=== PATIENT | female | born 1950 | race Caucasian/White ===

== ENCOUNTER 2017-03-23 12:51 | Outpatient (CLI) | payer MEDICARE, OTHER | END 2017-03-23 12:52 | disposition home or self-care (01) | LOC: BICRAD 12:51 | PROVIDERS: ATTEND Internal Medicine | DX: Z01.811 Encounter for preprocedural respiratory examination (principal); I70.90 Unspecified atherosclerosis; J81.0 Acute pulmonary edema | CPT/HCPCS: 71020 ==

== ENCOUNTER 2019-04-25 13:53 | Outpatient (CLI) | payer MEDICARE, OTHER ==
--- NOTE | 2019-04-25 15:08 | RAD ---
TWO VIEWS OF THE CHEST: COMPARISON: None. HISTORY: Dyspnea. FINDINGS: Two views of the chest show an enlarged cardiomediastinal silhouette with atherosclerotic calcificati ons in the aorta. There is elevation of the right hemidiaphragm. There is no evidence of consolidat ion, mass, or pleural effusion. Degenerative changes are seen in the spine. The patient has a right shoulder prosthesis. IMPRESSION: No evidence of acute cardiopulmonary disease. POS: CET
== END 2019-04-25 13:54 | disposition home or self-care (01) ==
LOC: RAD 13:53
PROVIDERS: ATTEND Internal Medicine Pulmonary Disease
DX: R06.00 Dyspnea, unspecified (principal)
CPT/HCPCS: 71046

== ENCOUNTER 2019-06-03 13:44 | Outpatient (CLI) | payer MEDICARE, OTHER ==
--- NOTE | 2019-06-03 14:00 | RAD ---
KUB INDICATION: History of nephrolithiasis COMPARISON: None FINDINGS: There is a 1.2 cm calculus within the expected region of the right renal pelvis or proximal right ureter. No additional suspicious calcifications grossly evident. There is moderate amount retained stool within the right hemicolon. There is thoracolumbar scoliosis. There is airspace opacit y within the left lower lobe which is new from comparison chest radiograph dated April 25, 2019. There are bilateral total hip replacements. There are moderate to severe vascular calcification invol ving abdominal pelvic vasculature. IMPRESSION: 1. 1.2 cm calculus suspected in the region of the right renal pelvis or proximal right ureter. Recomm end consideration for a CT the abdomen and pelvis without contrast for further localization. 2. Patchy airspace opacity in the left lower lobe is suspicious for pneumonia. Recommend correlation with the clinical examination and radiographic follow-up.
== END 2019-06-03 13:45 | disposition home or self-care (01) ==
LOC: BICRAD 13:44
PROVIDERS: ATTEND Urology
DX: N20.0 Calculus of kidney (principal)
CPT/HCPCS: 74018

== ENCOUNTER 2019-07-18 13:20 | Inpatient (IN) | payer MEDICARE, OTHER ==
[2019-07-18 13:59] LABS: #Basophils 0.1 thou/uL (0.0-0.2); #Lymphocytes 1.5 thou/uL (1.20-3.40); #Monocytes 0.6 thou/uL (0.11-0.59); #Neutrophils 4.7 thou/uL (1.40-6.50); %Basophils 1.1 % (0.0-1.0); %Eosinophils 0.6 % (0.0-10.0); %Lymphocytes 21.4 % (21.0-51.0); %Monocytes 8.8 % (0.0-10.0); Hemoglobin 10.3 g/dL (12.0-16.0); Mean Corpuscular HGB CONC 31.2 g/dL (32.0-36.0); Mean Corpuscular Hemoglobin 29.6 pg (27.0-31.0); Mean Corpuscular Volume 94.9 fL (78.0-98.0); Mean Platelet Volume 8.1 fL (7.4-10.4); Platelet Count 309 thou/uL (130-400); RBC Distribution Width 18.4 % (11.5-14.5); Red Blood Cell (RBC) Count 3.48 mill/uL (4.20-5.40)
[2019-07-18] MEDS ORDERED: PROVENTIL INHALER 6.7 G (200 INHALATIONS) INH SCH (14:15)
[2019-07-18] MEDS ORDERED: Lisinopril 10 MG TAB ONE (14:17)
[2019-07-18] MEDS ORDERED: Budesonide 0.5 MG/2 ML NEB ONE (14:17)
[2019-07-18] MEDS ORDERED: Albuterol 200 PUFF (6.7GM INHALER) ONE (14:18)
[2019-07-18 14:19] LABS: ALT (SGPT) 26 U/L (8-55); AST (SGOT) 28 U/L (5-34); Albumin 3.5 g/dL (3.4-4.8); Alkaline Phosphatase 74 U/L (40-110); Anion Gap 17 mmol/L (10-20); BUN (Urea Nitrogen) 24 mg/dL (9.8-20.1); Bilirubin, Total 0.3 mg/dL (0.2-1.2); CK (CPK) 84 U/L (29-168); Calc. Creatinine Clearance 0 mL/min (70-130); Carbon Dioxide 24 mmol/L (23-31); Chloride 105 mmol/L (98-107); Estimated GFR-MDRD 25; Glucose 263 mg/dL (80-115); Protein, Total 6.5 g/dL (6.0-8.3); Sodium 142 mmol/L (136-145)
--- NOTE | 2019-07-18 14:25 | RAD ---
RADIOGRAPH CHEST 1 VIEW: Date: 07/18/2019 Time: 1415 HOURS HISTORY: 68-year-old [id number] female with chest pain and cough. COMPARISON: 04/25/2019. FINDINGS: There is a new, dense, moderately large consolidation involving the lower third or half of the left l aniyah. Diffusely prominent interstitial markings bilaterally, apparently greater than on the prior stud y. No pneumothorax. Prominent bilateral anoop. IMPRESSION: 1. Consolidation involving left lower lobe and lingula of left upper lobe, consistent with pneumonia , which may or may not represent COVID-19 pneumonia. 2. New finding of diffuse mild interstitial changes throughout the rest of the visualized lung field devin LANIER [] POS: JIN
[2019-07-18 14:41] LABS: CKMB 2.7 ng/mL (0-6.6)
[2019-07-18] MEDS ORDERED: Cefepime 2 GM VIAL ONE (15:27)
[2019-07-18] MEDS ORDERED: Vancomycin 1 GM/200 ML BAG ONE (16:34)
[2019-07-18 17:13] LABS: Troponin I 0.047 ng/mL (< 0.028)
[2019-07-18] MEDS ORDERED: Ondansetron ODT 4 MG TAB PO PRN (18:43)
[2019-07-18] MEDS ORDERED: Ondansetron PF 4 MG/2 ML Vial IVP PRN (18:43)
[2019-07-18] MEDS ORDERED: Acetaminophen 500 MG TAB PO PRN (18:43)
[2019-07-18] MEDS ORDERED: Benzonatate 100 MG CAP PO PRN (18:43)
[2019-07-18] MEDS ORDERED: hydrALAZINE 20 MG/ML VIAL SLOW IVP PRN (18:43)
[2019-07-18 19:38] LABS: Troponin I 0.054 ng/mL (< 0.028)
[2019-07-18] MEDS: Azithromycin 500 MG in Sodium Chloride 0.9% 250 ML 250 ML IVPB SCH (20:26)
[2019-07-18] MEDS: Sodium Chloride 0.9% 1,000 ML IV SCH (20:26)
[2019-07-18] MEDS ORDERED: Famotidine 20 MG TAB PO SCH (21:00)
--- NOTE | 2019-07-18 21:14 | HP ---
PRIMARY CARE PROVIDER: Raudel Cherry MD CHIEF COMPLAINT: Shortness of breath and hypoxia. HISTORY OF PRESENT ILLNESS: This is a 68-year-old female, who presents to [facility] Emergency Department in transport by EMS personnel after apparently falling while feeding her dog at home. The patient fell tripping over her oxygen tubing as she is on chronic oxygen supplementation at 3 L/minute by nasal cannula over the last 20 years due to chronic obstructive pulmonary disease. The patient apparently called EMS personnel to assist getting off the floor when they did a finger pulse oximeter measurements and noted her reading in the 70% range. The patient denied any specific increased shortness of breath, fever, or chills but has noted over the last several days, decreased exercise tolerance when walking in her home. The patient apparently was recently discharged from [facility] on 07/12/2019 after COPD exacerbation and being COVID-19 positive. The patient states she was discharged home and stayed home at the direction of the hospital staff and denies any known contacts or family members at home. The patient states she was exposed by her [id number] and after a recent trip to [place], [place], taking commercial flight. In the emergency room, the patient underwent general evaluation including chest imaging showing consolidation of the left lower lobe and lingula of the left upper lobe. Diffuse mild interstitial changes noted in bilateral lung soto. The patient was also placed on high-flow oxygen by nasal cannula and received vancomycin, cefepime, and Proventil HFA. PAST MEDICAL HISTORY: 1. Chronic hypoxic respiratory failure on chronic oxygen supplementation at 3 L/minute by nasal cannula. 2. COVID-19 positive, 06/2019. 3. Chronic kidney disease stage 4. 4. Rheumatoid arthritis, on chronic hydroxychloroquine. 5. Peripheral neuropathy. 6. Hypertension. 7. Osteoarthritis. 8. History of falls. 9. Depression. PAST SURGICAL HISTORY: 1. Status post gastric bypass in 1999. 2. Status post cholecystectomy. 3. Status post section. 4. Status post hysterectomy. 5. Status post bilateral total hip arthroplasty. 6. Status post bilateral knee surgery. CURRENT MEDICATIONS: 1. Hydroxychloroquine 200 mg p.o. daily. 2. Arava 20 mg p.o. daily. 3. Protonix 40 mg p.o. b.i.d. 4. Sulfasalazine 1000 mg p.o. b.i.d. 5. Folic acid 1 mg p.o. daily. 6. Gabapentin 1200 mg p.o. b.i.d. 7. Breo Ellipta 100/25 mcg one inhalation daily. 8. Amlodipine 5 mg p.o. daily. 9. Wellbutrin 200 mg p.o. q.a.m. ALLERGIES: NITROFURANTOIN WITH UNCLEAR REACTION. FAMILY HISTORY: Positive for hypertension. SOCIAL HISTORY: Resides in [place], [place], and lives independently. Remote tobacco use, quitting in 2014. No alcohol or illicit drug use. Medical power of insurance attorney is her son, Brayden Boston, who is medical surrogate decision maker. REVIEW OF SYSTEMS: CONSTITUTIONAL: Negative for weight loss or gain, ability to conduct usual activities. SKIN: Negative for rash, itching. EYES: Negative for double vision, pain. ENT/MOUTH: Negative for nose bleeding, neck stiffness, pain, tenderness. CARDIOVASCULAR: Negative for palpitations, dyspnea on exertion, orthopnea. RESPIRATORY: Negative for shortness of breath, wheezing, cough, hemoptysis, fever or night sweats. GASTROINTESTINAL: Negative for poor appetite, abdominal pain, heartburn, nausea, vomiting, constipation, or diarrhea. GENITOURINARY: Negative for urgency, frequency, dysuria, nocturia. MUSCULOSKELETAL: Negative for pain, swelling. NEUROLOGIC/PSYCHIATRIC: Negative for anxiety, depression. ALLERGY/IMMUNOLOGIC: Negative for skin rash, bleeding tendency. Otherwise negative except as stated per HPI. PHYSICAL EXAMINATION: VITAL SIGNS: On admission, blood pressure 130/75, pulse 105, respiratory rate 28, temperature 98.6 degrees Fahrenheit, O2 saturation 89% on 100% non-rebreather. GENERAL APPEARANCE: This is a 68-year-old female, alert and oriented x3, pleasant, responsive, in mild respiratory distress. HEENT: Pupils are equal, round, reactive to light and accommodation. Extraocular muscles are intact. No scleral icterus. No conjunctival injection. Nares patent. OP is clear. High-flow nasal cannula in place. NECK: Supple. No cervical adenopathy. No thyromegaly. No carotid bruits. No JVD appreciated. Cervical spine with full active and passive range of motion. No meningeal signs noted. CHEST: Diminished breath sounds bilaterally with occasional rhonchi. CARDIOVASCULAR EXAM: S1, S2 without noted murmur, rub, or gallop. Heart sounds are distant. ABDOMEN: Rounded, soft, nontender, and nondistended. Bowel sounds are positive in all 4 quadrants. No hepatosplenomegaly. No abdominal bruits. No rebound or guarding appreciated. EXTREMITIES: Warm and dry with fair turgor. No clubbing, cyanosis, or asymmetric edema appreciated. Pulses palpable distally at the dorsalis pedis, posterior tibial, and popliteal arteries bilaterally. Capillary refill less than 2 seconds. NEUROLOGIC: Cranial nerves 2 through 12 are grossly intact. No focal or lateralizing signs appreciated. PERTINENT LABORATORY AND X-RAY FINDINGS: Sodium 142, potassium 4.0, chloride 105, CO2 of 24, BUN 24, creatinine 1.96, estimated GFR 25, glucose 263, calcium 9.0. LFTs within normal limits. Troponin I ranged between 0.042 to 0.047. CRP 1.21, albumin 3.5. CBC showed a white blood cell count of 7.0, hemoglobin 10.3, hematocrit 33, platelet count 309 with normal differential. D-dimer 1.09. Group A streptococcal throat screen negative on 07/18/2019. Influenza A and B antigen 07/18/2019 negative. Portable chest x-ray dated 07/18/2019, showed questionable infiltrate in the left lower lobe and lingula of the left upper lobe. Mild diffuse interstitial changes bilaterally. EKG dated 07/18/2019, by my interpretation shows sinus tachycardia with heart rates in the low 100s. Right bundle-branch block pattern noted. Normal axis. No acute ST-T wave changes noted. ASSESSMENT AND PLAN: 1. Acute on chronic hypoxic respiratory failure. The patient will be admitted to the telemetry unit. We will continue high-flow oxygen by nasal cannula to maintain O2 saturations greater than or equal to 86%. Suspect a combination of potential developing pneumonia in conjunction with COVID-19. Add Proventil 2 puffs inhaled q.4 hours. 2. Pneumonia suspected due to COVID-19, left lower lobe. Continue cefepime 1 g IV q.12 hours with additional Zithromax 500 mg IV daily. Continue general pulmonary supportive management as outlined previously. 3. Chronic kidney disease, stage 4. We will initiate intravenous normal saline at 75 mL/h. Avoid nephrotoxic agents and limit contrast exposure. Repeat creatinine in the a.m. 4. Non-ST elevation myocardial infarction type 2. Suspect demand ischemia in the context of current presentation with respiratory failure. Continue serial monitoring. Medical management. 5. Chronic normocytic anemia. Stable trend when reviewing electronic medical record. No active blood loss noted. Continue proton pump inhibitor and serial H and H monitoring. 6. Hypertension. Resume home blood pressure regimen and monitor clinical response. 7. Prophylaxis. SCDs while in bed. Respiratory isolation for COVID-19 protocol. Pepcid 20 mg p.o. b.i.d. PT evaluation prior to discharge. 8. Code status is full. Surrogate medical decision maker is the patient's son. Job ID: [id number]
[2019-07-18] MEDS: PROVENTIL INHALER 6.7 G (200 INHALATIONS) INH SCH (23:34)
[2019-07-19] MEDS: PROVENTIL INHALER 6.7 G (200 INHALATIONS) INH SCH ×6 (03:31→21:53)
[2019-07-19] MEDS: Cefepime 1 GM in Sodium Chloride 0.9% 100 ML IVPB SCH ×2 (03:31→16:57)
[2019-07-19 05:44] LABS: Band 8 % (5-11); Eosinophils 1 % (0-10); Hemoglobin 9.2 g/dL (12.0-16.0); Hypochromia SLIGHT = 6-15 cells (100X) (0-5/hpf); Lymphocytes 11 % (21-51); MDiff Complete? YES; Mean Corpuscular HGB CONC 31.8 g/dL (32.0-36.0); Mean Corpuscular Hemoglobin 29.9 pg (27.0-31.0); Mean Corpuscular Volume 94.1 fL (78.0-98.0); Monocytes 9 % (0-10); Neutrophil 71 % (42-75); Platelet Count 267 thou/uL (130-400); Platelet Morphology Comment Appears Adequate; RBC Distribution Width 18.7 % (11.5-14.5); Red Blood Cell (RBC) Count 3.06 mill/uL (4.20-5.40); White Blood Cell (WBC) Count 6.4 thou/uL (4.8-10.8)
[2019-07-19 05:53] LABS: ALT (SGPT) 20 U/L (8-55); AST (SGOT) 22 U/L (5-34); Alkaline Phosphatase 63 U/L (40-110); Anion Gap 11 mmol/L (10-20); BUN (Urea Nitrogen) 21 mg/dL (9.8-20.1); Bilirubin, Total 0.2 mg/dL (0.2-1.2); Calc. Creatinine Clearance 44 mL/min (70-130); Carbon Dioxide 29 mmol/L (23-31); Chloride 108 mmol/L (98-107); Estimated GFR-MDRD 27; Globulin 3.2 g/dL (2.4-3.5); Glucose 170 mg/dL (80-115); Protein, Total 6.2 g/dL (6.0-8.3); Sodium 144 mmol/L (136-145)
[2019-07-19] MEDS: Sodium Chloride 0.9% 1,000 ML IV SCH ×3 (09:15→14:20)
--- NOTE | 2019-07-19 13:05 | PDOC.HOSPP ---
- Subjective Encounter Date: 07/19/19 Encounter Time: 12:50 Subjective: f/u for COVID-19/PNA and resp failure. Remains on high-flow O2 via NC, O2 sats remain in the upper 80% range. Mild cough, no fever. - Objective Vital Signs & Weight: Vital Signs (12 hours) Temp Pulse Resp BP Pulse Ox 07/19/19 08:44 98.8 F 108 H 20 163/74 H 88 L 07/19/19 07:47 88 L 07/19/19 07:46 100 20 88 L 07/19/19 04:00 98.9 F 102 H 20 146/72 H 88 L Weight Weight 211 lb 15.944 oz Result Diagrams: 07/19/19 05:20 07/19/19 05:20 Additional Labs: Microbiology 07/18/19 14:06 Throat - Pending Group A Streptococcus Screen (RAMYA) - Final 07/18/19 14:06 Nasal swab Influenza Types A,B Direct EIA - Final Laboratory Tests 07/18/19 07/18/19 07/18/19 13:47 13:47 13:47 D-Dimer 1.09 H Creatinine 1.96 H Ferritin Lactate Dehydrogenase Troponin I 0.042 H C-Reactive Protein 07/18/19 07/18/19 07/18/19 16:38 19:07 19:07 D-Dimer Creatinine Ferritin Lactate Dehydrogenase 326 H Troponin I 0.047 H 0.054 H C-Reactive Protein 07/18/19 07/18/19 19:07 19:07 D-Dimer Creatinine Ferritin 349.71 H Lactate Dehydrogenase Troponin I C-Reactive Protein 1.21 H EKG Reviewed by me: Yes (Tele - sinus tach in low 100's) Hospitalist ROS - Medication Medications: Active Medications Generic Name Dose Route Start Last Admin Trade Name Freq PRN Reason Stop Dose Admin Albuterol Sulfate 2 puff 07/18/19 22:30 07/19/19 07:46 Proventil Hfa INH 2 puff [id number] ELLEN Administration Azithromycin 500 mg/ Sodium 250 mls @ 250 mls/hr 07/18/19 20:00 07/18/19 20: 26 Chloride IVPB 250 mls Q24HR ELLEN Administration Cefepime HCl 1 gm/ Sodium 100 mls @ 200 mls/hr 07/19/19 04:00 07/19/19 03:31 Chloride IVPB 100 mls 0400,1600 ELLEN Administration Sodium Chloride 1,000 mls @ 75 mls/hr 07/18/19 18:45 07/19/19 09:42 Normal Saline 0.9% IV 1,000 mls .[id number] ELLEN Administration - Exam General Appearance: awake alert General - other findings: mild resp distress Eye: PERRL, anicteric sclera ENT: normocephalic atraumatic, no oropharyngeal lesions Neck: supple, symmetric, no JVD, no thyromegaly Heart: no murmur, no gallops, no rubs, normal peripheral pulses Heart - other findings: S1, S2 with tachycardia Respiratory: tachypneic Respiratory - other findings: diminished in bases Gastrointestinal: soft, non-tender, non-distended, normal bowel sounds Gastrointestinal - other findings: obese Extremities: no cyanosis, no clubbing, no edema Skin: normal turgor Neurological: cranial nerve grossly intact, no new deficit Musculoskeletal: normal tone, generalized weakness Psychiatric: normal affect, A&O x 3 Hosp A/P (1) COVID-19 virus infection Code(s): U07.1 - COVID-19 Status: Acute Plan: Continue supportive mgmt, IV Zithromax/Hydroxychloroquine, high-flow O2 via NC, resp isolation (2) Pneumonia due to 2019 novel coronavirus Code(s): U07.1 - COVID-19; J12.89 - OTHER VIRAL PNEUMONIA Status: Acute Plan: Continue mgmt as outlined in #1, Cefepime 1gm IV BID, Albuterol MDI (3) Acute and chronic respiratory failure with hypoxia Code(s): J96.21 - ACUTE AND CHRONIC RESPIRATORY FAILURE WITH HYPOXIA Status: Acute Plan: High flow O2 via NC, titrate as clinically indicated (4) NSTEMI (non-ST elevated myocardial infarction) Code(s): I21.4 - NON-ST ELEVATION (NSTEMI) MYOCARDIAL INFARCTION Status: Acute Plan: Type II due to demand state in context of #1 (5) CKD (chronic kidney disease), stage IV Code(s): N18.4 - CHRONIC KIDNEY DISEASE, STAGE 4 (SEVERE) Status: Acute Plan: Avoid nephrotoxic meds and limit contrast, serial creatinine - Plan continue antibiotics, social and political studies professor, respiratory therapy, DVT proph w/SCDs Continue pulmonary support Resp isolation Continue Zithromax/Hydroxychloroquine High-flow O2 via NC Resume home BP meds AM lab: BMP, H/H
[2019-07-19] MEDS ORDERED: Hydroxychloroquine Sulfate 200 MG TAB PO SCH (14:00)
[2019-07-19] MEDS: Gabapentin 400 MG CAP PO SCH (19:57)
[2019-07-19] MEDS: DULoxetine 60 MG CAP PO SCH (19:57)
[2019-07-19] MEDS: Atorvastatin Calcium 10 MG TAB PO SCH (19:57)
[2019-07-19] MEDS: Amitriptyline HCl 25 MG TAB PO SCH (19:58)
[2019-07-19] MEDS ORDERED: Famotidine 20 MG TAB PO SCH (21:00)
[2019-07-19] MEDS: Azithromycin 500 MG in Sodium Chloride 0.9% 250 ML 250 ML IVPB SCH (21:52)
[2019-07-20] MEDS: PROVENTIL INHALER 6.7 G (200 INHALATIONS) INH SCH ×6 (02:45→22:40)
[2019-07-20] MEDS: Cefepime 1 GM in Sodium Chloride 0.9% 100 ML IVPB SCH ×2 (04:42→15:54)
[2019-07-20] MEDS: Sodium Chloride 0.9% 1,000 ML IV SCH (05:43)
[2019-07-20 06:30] LABS: Hemoglobin 11.1 g/dL (12.0-16.0); Platelet Count 238 thou/uL (130-400)
[2019-07-20 06:48] LABS: Anion Gap 13 mmol/L (10-20); BUN (Urea Nitrogen) 17 mg/dL (9.8-20.1); Calc. Creatinine Clearance 55 mL/min (70-130); Calcium 9.3 mg/dL (7.8-10.44); Carbon Dioxide 29 mmol/L (23-31); Chloride 106 mmol/L (98-107); Estimated GFR-MDRD 36; Glucose 165 mg/dL (80-115); Sodium 144 mmol/L (136-145)
[2019-07-20] MEDS: DULoxetine 60 MG CAP PO SCH ×2 (08:29→20:15)
[2019-07-20] MEDS: Pioglitazone HCl 15 MG TAB PO SCH (08:29)
[2019-07-20] MEDS: Aspirin 81 mg Enteric Coated Tablet PO SCH (08:29)
[2019-07-20] MEDS: Gabapentin 400 MG CAP PO SCH ×2 (08:30→20:15)
[2019-07-20] MEDS: Multivit, Therapeutic 1 TAB PO SCH (08:30)
[2019-07-20] MEDS: Bupropion 150 MG XL TAB PO SCH (08:30)
[2019-07-20] MEDS: Folic Acid 1 MG TAB PO SCH (08:31)
[2019-07-20] MEDS: Ferrous Sulfate 325 MG TAB PO SCH (08:31)
[2019-07-20] MEDS: Hydroxychloroquine Sulfate 200 MG TAB PO SCH (08:31)
--- NOTE | 2019-07-20 08:40 | PDOC.HOSPP ---
- Subjective Encounter Date: 07/20/19 Encounter Time: 11:10 Subjective: Patient with continued high flow O2 requirement. No other complaints. - Objective Vital Signs & Weight: Vital Signs (12 hours) Temp Pulse Resp BP BP Pulse Ox 07/20/19 07:22 92 L 07/20/19 06:10 97.7 F 94 20 148/75 H 86 L 07/20/19 04:45 94 L 07/20/19 03:42 93 L 07/20/19 02:55 98.1 F 91 20 136/71 98 Weight Weight 211 lb 15.944 oz I&O: 07/19/19 07/20/19 07/21/19 06:59 06:59 06:59 Intake Total 2760 Output Total 1600 Balance 1160 Result Diagrams: 07/20/19 06:17 07/20/19 06:17 Hospitalist ROS - Review of Systems Constitutional: denies: fever, chills Respiratory: reports: shortness of breath. denies: cough Cardiovascular: denies: chest pain, palpitations Gastrointestinal: denies: nausea, vomiting, abdominal pain - Medication Medications: Active Medications Generic Name Dose Route Start Last Admin Trade Name Freq PRN Reason Stop Dose Admin Acetaminophen 1,000 mg 07/18/19 18:43 07/19/19 19:57 Tylenol PO 1,000 mg Q6H PRN Administration Mild Pain (1-3) Albuterol Sulfate 2 puff 07/18/19 22:30 07/20/19 06:25 Proventil Hfa INH 2 puff [id number] ELLEN Administration Amitriptyline HCl 25 mg 07/19/19 21:00 07/19/19 19:58 Elavil PO 25 mg HS ELLEN Administration Aspirin 81 mg 07/20/19 09:00 07/20/19 08:29 Ecotrin PO 81 mg DAILY ELLEN Administration Atorvastatin Calcium 10 mg 07/19/19 21:00 07/19/19 19:57 Lipitor PO 10 mg HS ELLEN Administration Bupropion HCl 300 mg 07/20/19 09:00 07/20/19 08:30 Wellbutrin Xl PO 300 mg DAILY ELLEN Administration Diltiazem HCl 180 mg 07/20/19 09:00 07/20/19 08:30 Cardizem Cd PO 180 mg DAILY ELLEN Administration Duloxetine HCl 60 mg 07/19/19 21:00 07/20/19 08:29 Cymbalta PO 60 mg BID ELLEN Administration Ferrous Sulfate 325 mg 07/20/19 08:00 07/20/19 08:31 Feosol PO 325 mg QAM-WM ELLEN Administration Folic Acid 1 mg 07/20/19 09:00 07/20/19 08:31 Folvite PO 1 mg DAILY ELLEN Administration Gabapentin 1,200 mg 07/19/19 21:00 07/20/19 08:30 Neurontin PO 1,200 mg BID ELLEN Administration Hydroxychloroquine Sulfate 200 mg 07/20/19 09:00 07/20/19 08:31 Plaquenil PO 200 mg DAILY ELLEN Administration Azithromycin 500 mg/ Sodium 250 mls @ 250 mls/hr 07/18/19 20:00 07/19/19 21: 52 Chloride IVPB 250 mls Q24HR ELLEN Administration Cefepime HCl 1 gm/ Sodium 100 mls @ 200 mls/hr 07/19/19 04:00 07/20/19 04:42 Chloride IVPB 100 mls 0400,1600 ELLEN Administration Sodium Chloride 1,000 mls @ 50 mls/hr 07/19/19 13:12 07/20/19 05:43 Normal Saline 0.9% IV 1,000 mls .Q20H ELLEN Administration Multivitamins 1 tab 07/20/19 09:00 07/20/19 08:30 Theragran PO 1 tab DAILY ELLEN Administration Pantoprazole Sodium 40 mg 07/19/19 21:00 07/20/19 08:31 Protonix PO 40 mg BID ELLEN Administration Pioglitazone HCl 30 mg 07/20/19 09:00 07/20/19 08:29 Actos PO 30 mg DAILY ELLEN Administration - Exam General Appearance: NAD, awake alert ENT: moist mucosa Heart: RRR, no murmur, no gallops, no rubs Respiratory - other findings: Decent air movement throughout, no increased WOB on high flow O2 Gastrointestinal: soft, non-tender, non-distended, normal bowel sounds Extremities: no edema Psychiatric: normal affect, normal behavior, A&O x 3 Hosp A/P (1) Acute and chronic respiratory failure with hypoxia Code(s): J96.21 - ACUTE AND CHRONIC RESPIRATORY FAILURE WITH HYPOXIA Status: Acute (2) Pneumonia due to 2019 novel coronavirus Code(s): U07.1 - COVID-19; J12.89 - OTHER VIRAL PNEUMONIA Status: Acute (3) COVID-19 virus infection Code(s): U07.1 - COVID-19 Status: Acute (4) Type 2 acute myocardial infarction Code(s): I21.A1 - MYOCARDIAL INFARCTION TYPE 2 Status: Acute (5) CKD (chronic kidney disease), stage IV Code(s): N18.4 - CHRONIC KIDNEY DISEASE, STAGE 4 (SEVERE) Status: Chronic - Plan continue antibiotics, social worker palliative care, respiratory therapy, DVT proph w/SCDs Continue pulmonary support Resp isolation Continue Zithromax/Hydroxychloroquine/Cefepime Repeat Covid-19 testing pending High-flow O2 via NC Resume home BP meds AM lab: BMP, CBC
[2019-07-20] MEDS: Azithromycin 500 MG in Sodium Chloride 0.9% 250 ML 250 ML IVPB SCH (20:15)
[2019-07-20] MEDS: Atorvastatin Calcium 10 MG TAB PO SCH (20:15)
[2019-07-20] MEDS: Amitriptyline HCl 25 MG TAB PO SCH (20:15)
[2019-07-21] MEDS: PROVENTIL INHALER 6.7 G (200 INHALATIONS) INH SCH ×5 (02:38→19:13)
[2019-07-21] MEDS: Cefepime 1 GM in Sodium Chloride 0.9% 100 ML IVPB SCH ×2 (04:07→15:39)
[2019-07-21] MEDS: Sodium Chloride 0.9% 1,000 ML IV SCH ×2 (06:25→06:43)
--- NOTE | 2019-07-21 08:10 | PDOC.HOSPP ---
- Subjective Encounter Date: 07/21/19 Encounter Time: 10:30 Subjective: Patient without changes. Doing well on the high flow O2 but not able to wean down. Energy about the same. No significant cough/wheeze/SOB at rest on the O2. Would like to restart her home Percocet if able. She usually takes 1-3 times per day from her PCP. - Objective Vital Signs & Weight: Vital Signs (12 hours) Temp Pulse Resp BP Pulse Ox 07/21/19 04:12 98.2 F 97 20 139/71 97 07/21/19 04:00 91 93 L 07/21/19 00:00 98.8 F 100 20 133/66 95 07/20/19 22:40 90 20 87 L 07/20/19 20:17 99.0 F 107 H 22 H 126/62 92 L Weight Admit Weight 211 lb Weight 211 lb 15.944 oz I&O: 07/20/19 07/21/19 07/22/19 06:59 06:59 06:59 Intake Total 2760 1450 Output Total 1600 2000 Balance 1160 -550 Result Diagrams: 07/21/19 11:01 07/21/19 11:01 Hospitalist ROS - Review of Systems Constitutional: denies: fever, chills Respiratory: reports: shortness of breath, SOB with excertion. denies: cough, wheezing Cardiovascular: denies: chest pain, palpitations, orthopnea Gastrointestinal: denies: nausea, vomiting, abdominal pain - Medication Medications: Active Medications Generic Name Dose Route Start Last Admin Trade Name Freq PRN Reason Stop Dose Admin Acetaminophen 1,000 mg 07/18/19 18:43 07/19/19 19:57 Tylenol PO 1,000 mg Q6H PRN Administration Mild Pain (1-3) Albuterol Sulfate 2 puff 07/18/19 22:30 07/21/19 06:25 Proventil Hfa INH 2 puff [id number] ELLEN Administration Amitriptyline HCl 25 mg 07/19/19 21:00 07/20/19 20:15 Elavil PO 25 mg HS ELLEN Administration Aspirin 81 mg 07/20/19 09:00 07/20/19 08:29 Ecotrin PO 81 mg DAILY ELLEN Administration Atorvastatin Calcium 10 mg 07/19/19 21:00 07/20/19 20:15 Lipitor PO 10 mg HS ELLEN Administration Bupropion HCl 300 mg 07/20/19 09:00 07/20/19 08:30 Wellbutrin Xl PO 300 mg DAILY ELLEN Administration Diltiazem HCl 180 mg 07/20/19 09:00 07/20/19 08:30 Cardizem Cd PO 180 mg DAILY ELLEN Administration Duloxetine HCl 60 mg 07/19/19 21:00 07/20/19 20:15 Cymbalta PO 60 mg BID ELLEN Administration Ferrous Sulfate 325 mg 07/20/19 08:00 07/20/19 08:31 Feosol PO 325 mg QAM-WM ELLEN Administration Folic Acid 1 mg 07/20/19 09:00 07/20/19 08:31 Folvite PO 1 mg DAILY ELLEN Administration Gabapentin 1,200 mg 07/19/19 21:00 07/20/19 20:15 Neurontin PO 1,200 mg BID ELLEN Administration Hydroxychloroquine Sulfate 200 mg 07/20/19 09:00 07/20/19 08:31 Plaquenil PO 200 mg DAILY ELLEN Administration Azithromycin 500 mg/ Sodium 250 mls @ 250 mls/hr 07/18/19 20:00 07/20/19 20: 15 Chloride IVPB 250 mls Q24HR ELLEN Administration Cefepime HCl 1 gm/ Sodium 100 mls @ 200 mls/hr 07/19/19 04:00 07/21/19 04:07 Chloride IVPB 100 mls 0400,1600 ELLEN Administration Sodium Chloride 1,000 mls @ 50 mls/hr 07/19/19 13:12 07/21/19 06:43 Normal Saline 0.9% IV 1,000 mls .Q20H ELLEN Administration Multivitamins 1 tab 07/20/19 09:00 07/20/19 08:30 Theragran PO 1 tab DAILY ELLEN Administration Pantoprazole Sodium 40 mg 07/19/19 21:00 07/20/19 20:15 Protonix PO 40 mg BID ELLEN Administration Pioglitazone HCl 30 mg 07/20/19 09:00 07/20/19 08:29 Actos PO 30 mg DAILY ELLEN Administration - Exam General Appearance: NAD, awake alert ENT: moist mucosa Heart: RRR, no murmur, no gallops, no rubs Respiratory: no wheezes, no rales, no ronchi Respiratory - other findings: decent air movement throughout Gastrointestinal: soft, non-tender, non-distended, normal bowel sounds Extremities: no edema Psychiatric: normal affect, normal behavior, A&O x 3 Hosp A/P (1) Acute and chronic respiratory failure with hypoxia Code(s): J96.21 - ACUTE AND CHRONIC RESPIRATORY FAILURE WITH HYPOXIA Status: Acute (2) Pneumonia due to 2019 novel coronavirus Code(s): U07.1 - COVID-19; J12.89 - OTHER VIRAL PNEUMONIA Status: Acute (3) COVID-19 virus infection Code(s): U07.1 - COVID-19 Status: Acute (4) Type 2 acute myocardial infarction Code(s): I21.A1 - MYOCARDIAL INFARCTION TYPE 2 Status: Acute (5) CKD (chronic kidney disease), stage IV Code(s): N18.4 - CHRONIC KIDNEY DISEASE, STAGE 4 (SEVERE) Status: Chronic (6) Rheumatoid arthritis Code(s): M06.9 - RHEUMATOID ARTHRITIS, UNSPECIFIED Status: Chronic (7) HTN (hypertension) Code(s): I10 - ESSENTIAL (PRIMARY) HYPERTENSION Status: Chronic - Plan continue antibiotics, social service director, respiratory therapy, DVT proph w/SCDs Continue pulmonary support Resp isolation Continue Zithromax/Hydroxychloroquine/Cefepime Repeat Covid-19 testing still positive for the virus High-flow O2 via NC Curbsided Dr. Randolph and he agreed with current treatment course, did recommend trying a low dose steroid given her underlying lung disease Resumed home BP meds AM lab: BMP, CBC
[2019-07-21] MEDS: DULoxetine 60 MG CAP PO SCH ×2 (08:25→19:50)
[2019-07-21] MEDS: Ferrous Sulfate 325 MG TAB PO SCH (08:25)
[2019-07-21] MEDS: Gabapentin 400 MG CAP PO SCH ×2 (08:25→19:50)
[2019-07-21] MEDS: Folic Acid 1 MG TAB PO SCH (08:25)
[2019-07-21] MEDS: Aspirin 81 mg Enteric Coated Tablet PO SCH (08:26)
[2019-07-21] MEDS: Multivit, Therapeutic 1 TAB PO SCH (08:26)
[2019-07-21] MEDS: Pioglitazone HCl 15 MG TAB PO SCH (08:26)
[2019-07-21] MEDS: Bupropion 150 MG XL TAB PO SCH (08:26)
[2019-07-21] MEDS: Hydroxychloroquine Sulfate 200 MG TAB PO SCH (08:26)
[2019-07-21 11:21] LABS: #Lymphocytes 1.2 thou/uL (1.20-3.40); #Monocytes 0.6 thou/uL (0.11-0.59); #Neutrophils 4.6 thou/uL (1.40-6.50); %Basophils 0.3 % (0.0-1.0); %Eosinophils 0.6 % (0.0-10.0); %Lymphocytes 18.8 % (21.0-51.0); %Monocytes 9.3 % (0.0-10.0); Hemoglobin 10.8 g/dL (12.0-16.0); Mean Corpuscular HGB CONC 31.8 g/dL (32.0-36.0); Mean Corpuscular Hemoglobin 30.1 pg (27.0-31.0); Mean Corpuscular Volume 94.8 fL (78.0-98.0); Mean Platelet Volume 8.8 fL (7.4-10.4); Platelet Count 210 thou/uL (130-400); Red Blood Cell (RBC) Count 3.58 mill/uL (4.20-5.40); White Blood Cell (WBC) Count 6.5 thou/uL (4.8-10.8)
[2019-07-21 11:42] LABS: Anion Gap 13 mmol/L (10-20); BUN (Urea Nitrogen) 17 mg/dL (9.8-20.1); Calc. Creatinine Clearance 50 mL/min (70-130); Calcium 9.2 mg/dL (7.8-10.44); Carbon Dioxide 29 mmol/L (23-31); Chloride 105 mmol/L (98-107); Estimated GFR-MDRD 32; Glucose 203 mg/dL (80-115); Potassium 4.4 mmol/L (3.5-5.1); Sodium 143 mmol/L (136-145)
[2019-07-21] MEDS: oxyCODONE/Acetaminophen 5 mg/325 mg Tablet PO PRN (11:45)
[2019-07-21] MEDS: methylPREDNISolone Sod Succ 40 MG VIAL IVP SCH ×2 (15:26→23:26)
[2019-07-21] MEDS: Azithromycin 500 MG in Sodium Chloride 0.9% 250 ML 250 ML IVPB SCH (19:49)
[2019-07-21] MEDS: Amitriptyline HCl 25 MG TAB PO SCH (19:50)
[2019-07-21] MEDS: Atorvastatin Calcium 10 MG TAB PO SCH (19:50)
[2019-07-22] MEDS: oxyCODONE/Acetaminophen 5 mg/325 mg Tablet PO PRN ×3 (00:17→22:42)
[2019-07-22] MEDS: PROVENTIL INHALER 6.7 G (200 INHALATIONS) INH SCH ×7 (00:25→22:28)
[2019-07-22] MEDS: Cefepime 1 GM in Sodium Chloride 0.9% 100 ML IVPB SCH ×2 (04:08→18:05)
[2019-07-22] MEDS: Sodium Chloride 0.9% 1,000 ML IV SCH (05:17)
[2019-07-22] MEDS: methylPREDNISolone Sod Succ 40 MG VIAL IVP SCH ×3 (05:17→20:52)
--- NOTE | 2019-07-22 06:50 | PDOC.HOSPP ---
- Subjective Encounter Date: 07/22/19 Encounter Time: 10:30 Subjective: Patient unchanged. Still requiring high flow O2. Coughed up a lot of clear sputum yesterday. No fever. - Objective Vital Signs & Weight: Vital Signs (12 hours) Temp Pulse Resp BP BP Pulse Ox 07/22/19 04:11 99.3 F 103 H 20 150/81 H 95 07/22/19 04:09 79 L 07/22/19 02:53 100 18 94 L 07/22/19 00:27 99.8 F H 103 H 20 157/63 H 98 07/21/19 20:26 98.6 F 100 16 133/80 93 L 07/21/19 19:13 86 16 93 L Weight Admit Weight 211 lb Weight 193 lb 1.6 oz I&O: 07/20/19 07/21/19 07/22/19 06:59 06:59 06:59 Intake Total 2760 1450 6196 Output Total 1600 2000 1900 Balance 1160 -550 4296 Result Diagrams: 07/21/19 11:01 07/21/19 11:01 Hospitalist ROS - Review of Systems Constitutional: denies: fever, chills Respiratory: reports: cough, shortness of breath Cardiovascular: denies: chest pain, palpitations, orthopnea Gastrointestinal: denies: nausea, vomiting, abdominal pain - Medication Medications: Active Medications Generic Name Dose Route Start Last Admin Trade Name Freq PRN Reason Stop Dose Admin Acetaminophen 1,000 mg 07/18/19 18:43 07/19/19 19:57 Tylenol PO 1,000 mg Q6H PRN Administration Mild Pain (1-3) Albuterol Sulfate 2 puff 07/18/19 22:30 07/22/19 06:22 Proventil Hfa INH 2 puff [id number] ELLEN Administration Amitriptyline HCl 25 mg 07/19/19 21:00 07/21/19 19:50 Elavil PO 25 mg HS ELLEN Administration Aspirin 81 mg 07/20/19 09:00 07/21/19 08:26 Ecotrin PO 81 mg DAILY ELLEN Administration Atorvastatin Calcium 10 mg 07/19/19 21:00 07/21/19 19:50 Lipitor PO 10 mg HS ELLEN Administration Bupropion HCl 300 mg 07/20/19 09:00 07/21/19 08:26 Wellbutrin Xl PO 300 mg DAILY ELLEN Administration Diltiazem HCl 180 mg 07/20/19 09:00 07/21/19 08:26 Cardizem Cd PO 180 mg DAILY ELLEN Administration Duloxetine HCl 60 mg 07/19/19 21:00 07/21/19 19:50 Cymbalta PO 60 mg BID ELLEN Administration Ferrous Sulfate 325 mg 07/20/19 08:00 07/21/19 08:25 Feosol PO 325 mg QAM-WM ELLEN Administration Folic Acid 1 mg 07/20/19 09:00 07/21/19 08:25 Folvite PO 1 mg DAILY ELLEN Administration Gabapentin 1,200 mg 07/19/19 21:00 07/21/19 19:50 Neurontin PO 1,200 mg BID ELLEN Administration Hydroxychloroquine Sulfate 200 mg 07/20/19 09:00 07/21/19 08:26 Plaquenil PO 200 mg DAILY ELLEN Administration Azithromycin 500 mg/ Sodium 250 mls @ 250 mls/hr 07/18/19 20:00 07/21/19 19: 49 Chloride IVPB 250 mls Q24HR ELLEN Administration Cefepime HCl 1 gm/ Sodium 100 mls @ 200 mls/hr 07/19/19 04:00 07/22/19 04:08 Chloride IVPB 100 mls 0400,1600 ELLEN Administration Sodium Chloride 1,000 mls @ 50 mls/hr 07/19/19 13:12 07/22/19 05:17 Normal Saline 0.9% IV 1,000 mls .Q20H ELLEN Administration Methylprednisolone Sodium Succinate 20 mg 07/21/19 14:00 07/22/19 05:17 Solu-Medrol IVP 20 mg Q8HR ELLEN Administration Multivitamins 1 tab 07/20/19 09:00 07/21/19 08:26 Theragran PO 1 tab DAILY ELLEN Administration Oxycodone/Acetaminophen 1 tab 07/21/19 10:09 07/22/19 06:19 Percocet 5/325 PO 1 tab Q4H PRN Administration Mild-Moderate Pain (1-5) Pantoprazole Sodium 40 mg 07/19/19 21:00 07/21/19 19:50 Protonix PO 40 mg BID ELLEN Administration Pioglitazone HCl 30 mg 07/20/19 09:00 07/21/19 08:26 Actos PO 30 mg DAILY ELLEN Administration Sodium Chloride 10 ml 07/21/19 21:00 07/21/19 19:52 Flush - Normal Saline IVF Not Given Q12HR ELLEN - Exam General Appearance: NAD, awake alert ENT: moist mucosa Heart: RRR, no murmur, no gallops, no rubs Respiratory: CTAB, no wheezes, no rales, no ronchi Gastrointestinal: soft, non-tender, non-distended, normal bowel sounds Psychiatric: normal affect, normal behavior, A&O x 3 Hosp A/P (1) Acute and chronic respiratory failure with hypoxia Code(s): J96.21 - ACUTE AND CHRONIC RESPIRATORY FAILURE WITH HYPOXIA Status: Acute (2) Pneumonia due to 2019 novel coronavirus Code(s): U07.1 - COVID-19; J12.89 - OTHER VIRAL PNEUMONIA Status: Acute (3) COVID-19 virus infection Code(s): U07.1 - COVID-19 Status: Acute (4) Type 2 acute myocardial infarction Code(s): I21.A1 - MYOCARDIAL INFARCTION TYPE 2 Status: Acute (5) CKD (chronic kidney disease), stage IV Code(s): N18.4 - CHRONIC KIDNEY DISEASE, STAGE 4 (SEVERE) Status: Chronic (6) Rheumatoid arthritis Code(s): M06.9 - RHEUMATOID ARTHRITIS, UNSPECIFIED Status: Chronic (7) HTN (hypertension) Code(s): I10 - ESSENTIAL (PRIMARY) HYPERTENSION Status: Chronic - Plan continue antibiotics, clinical social worker, respiratory therapy, DVT proph w/SCDs Continue pulmonary support Resp isolation Continue Zithromax/Hydroxychloroquine. Cefepime for total of 5-7 days as well. Repeat Covid-19 testing still positive for the virus High-flow O2 via [place] Curbsided Dr. Randolph and he agreed with current treatment course, did recommend trying a low dose steroid given her underlying lung disease Will see if patient can tolerate laying on her front for some time each day Resumed home BP meds AM lab: none tomorrow
[2019-07-22] MEDS: Bupropion 150 MG XL TAB PO SCH (08:45)
[2019-07-22] MEDS: Pioglitazone HCl 15 MG TAB PO SCH (08:46)
[2019-07-22] MEDS: Hydroxychloroquine Sulfate 200 MG TAB PO SCH (08:46)
[2019-07-22] MEDS: Ferrous Sulfate 325 MG TAB PO SCH (08:46)
[2019-07-22] MEDS: DULoxetine 60 MG CAP PO SCH ×2 (08:46→20:52)
[2019-07-22] MEDS: Aspirin 81 mg Enteric Coated Tablet PO SCH (08:46)
[2019-07-22] MEDS: Multivit, Therapeutic 1 TAB PO SCH (08:47)
[2019-07-22] MEDS: Folic Acid 1 MG TAB PO SCH (08:47)
[2019-07-22] MEDS: Gabapentin 400 MG CAP PO SCH ×2 (08:47→20:52)
--- NOTE | 2019-07-22 15:26 | PQF ---
CLINICAL DOCUMENTATION IMPROVEMENT CLARIFICATION FORM: ICD-10 Updated PLEASE DO AN ADDENDUM TO THE PROGRESS NOTE WITH ANY DOCUMENTATION UPDATES OR ADDITIONS AND CARRY THROUGH TO DC SUMMARY. THANK YOU. DATE: 07/22/2019 ATTN: Dr. Posada Please exercise your independent, professional judgment in responding to the clarification form. Clinical indicators are provided on the bottom of this form for your review Please check appropriate box(es): [ ] Sepsis present on admission [ ] Sepsis NOT present on admission [ ] Unable to determine Due to: [ ] Severe sepsis present on admission [ ] Severe Sepsis NOT present on admission [ ] Unable to determine with acute organ dysfunction of: [ X ] Localized infection without sepsis [ ] Other diagnosis [ ] Unable to determine For continuity of documentation, please document condition throughout progress notes and discharge summary. Thank You. CLINICAL INDICATORS - SIGNS / SYMPTOMS / LABS / RESULTS AND LOCATION IN MR ER Record 07/17: BP 129/68, Temp 98.6, Pulse 102, Resp. 28, O2 sat 85 on Non Rebreather H&P 07/17: LABS: CRP 1.21 D-dimer 1.09 A/P: Acute on chronic hypoxic respiratory failure. Pneumonia suspected due to COVID-19, L Lower lobe 07/20: Pneumonia due to 2019 novel coronavirus covid-19 virus infection Repeat Covid -19 testing still positive for the virus RISKS: H&P 07/17: recently discharged from [facility] 07/12/2019 after COPD exac. and being COVID-19 positive. PHM: Chronic hypoxic resp. failure on chronic O2; CKD 4; Rheumatoid arthritis. A/P: Acute on chronic hypoxic respiratory failure. Pneumonia suspected due to covid -19 TREATMENT: 07/19 ([place]) Continue pulmonary support Resp isolation Continue Zithromax / Hydrocychloroquine/Cefepime Repeat Covid-19 testing pending Thank you, Melisa (This form is maintained as a part of the permanent medical record) 2015 [employer] All Rights Reserved Melisa Nava RN, BSN [email or web address] [facility]
[2019-07-22] MEDS: Azithromycin 500 MG in Sodium Chloride 0.9% 250 ML 250 ML IVPB SCH (20:51)
[2019-07-22] MEDS: Amitriptyline HCl 25 MG TAB PO SCH (20:52)
[2019-07-22] MEDS: Atorvastatin Calcium 10 MG TAB PO SCH (20:52)
[2019-07-23] MEDS: PROVENTIL INHALER 6.7 G (200 INHALATIONS) INH SCH ×6 (02:20→22:19)
[2019-07-23] MEDS: methylPREDNISolone Sod Succ 40 MG VIAL IVP SCH ×3 (05:16→22:19)
[2019-07-23] MEDS: Cefepime 1 GM in Sodium Chloride 0.9% 100 ML IVPB SCH ×2 (05:16→15:42)
[2019-07-23 05:51] LABS: ALT (SGPT) 12 U/L (8-55); AST (SGOT) 13 U/L (5-34); Albumin 3.3 g/dL (3.4-4.8); Alkaline Phosphatase 64 U/L (40-110); Anion Gap 13 mmol/L (10-20); BUN (Urea Nitrogen) 29 mg/dL (9.8-20.1); Bilirubin, Total 0.2 mg/dL (0.2-1.2); Calc. Creatinine Clearance 40 mL/min (70-130); Calcium 9.1 mg/dL (7.8-10.44); Carbon Dioxide 28 mmol/L (23-31); Chloride 100 mmol/L (98-107); Estimated GFR-MDRD 27; Globulin 3.3 g/dL (2.4-3.5); Glucose 466 mg/dL (80-115); Magnesium 2.2 mg/dL (1.6-2.6); Protein, Total 6.6 g/dL (6.0-8.3); Sodium 136 mmol/L (136-145)
--- NOTE | 2019-07-23 07:25 | PDOC.HOSPP ---
- Subjective Encounter Date: 07/23/19 Encounter Time: 11:20 Subjective: No changes. Trying the prone positioning today. - Objective Vital Signs & Weight: Vital Signs (12 hours) Temp Pulse Resp BP Pulse Ox 07/23/19 05:15 97.6 F 92 20 126/67 94 L 07/23/19 02:20 97.9 F 98 20 136/78 94 L 07/23/19 00:12 100 07/22/19 20:50 99.0 F 100 18 147/75 H 100 Weight Admit Weight 211 lb Weight 193 lb 1.6 oz I&O: 07/22/19 07/23/19 07/24/19 06:59 06:59 06:59 Intake Total 6196 1746 Output Total 1900 650 Balance 4296 1096 Result Diagrams: 07/21/19 11:01 07/23/19 05:17 Hospitalist ROS - Review of Systems Constitutional: denies: fever, chills Respiratory: reports: cough, shortness of breath Cardiovascular: denies: chest pain, palpitations, orthopnea Gastrointestinal: denies: nausea, vomiting, abdominal pain Neurological: denies: weakness - Medication Medications: Active Medications Generic Name Dose Route Start Last Admin Trade Name Freq PRN Reason Stop Dose Admin Acetaminophen 1,000 mg 07/18/19 18:43 07/19/19 19:57 Tylenol PO 1,000 mg Q6H PRN Administration Mild Pain (1-3) Albuterol Sulfate 2 puff 07/18/19 22:30 07/23/19 05:17 Proventil Hfa INH 2 puff [id number] ELLEN Administration Amitriptyline HCl 25 mg 07/19/19 21:00 07/22/19 20:52 Elavil PO 25 mg HS ELLEN Administration Aspirin 81 mg 07/20/19 09:00 07/22/19 08:46 Ecotrin PO 81 mg DAILY ELLEN Administration Atorvastatin Calcium 10 mg 07/19/19 21:00 07/22/19 20:52 Lipitor PO 10 mg HS ELLEN Administration Bupropion HCl 300 mg 07/20/19 09:00 07/22/19 08:45 Wellbutrin Xl PO 300 mg DAILY ELLEN Administration Diltiazem HCl 180 mg 07/20/19 09:00 07/22/19 08:46 Cardizem Cd PO 180 mg DAILY ELLEN Administration Duloxetine HCl 60 mg 07/19/19 21:00 07/22/19 20:52 Cymbalta PO 60 mg BID ELLEN Administration Ferrous Sulfate 325 mg 07/20/19 08:00 07/22/19 08:46 Feosol PO 325 mg QAM-WM ELLEN Administration Folic Acid 1 mg 07/20/19 09:00 07/22/19 08:47 Folvite PO 1 mg DAILY ELLEN Administration Gabapentin 1,200 mg 07/19/19 21:00 07/22/19 20:52 Neurontin PO 1,200 mg BID ELLEN Administration Hydroxychloroquine Sulfate 200 mg 07/20/19 09:00 07/22/19 08:46 Plaquenil PO 200 mg DAILY ELLEN Administration Azithromycin 500 mg/ Sodium 250 mls @ 250 mls/hr 07/18/19 20:00 07/22/19 20: 51 Chloride IVPB 250 mls Q24HR ELLEN Administration Cefepime HCl 1 gm/ Sodium 100 mls @ 200 mls/hr 07/19/19 04:00 07/23/19 05:16 Chloride IVPB 100 mls 0400,1600 ELLEN Administration Sodium Chloride 1,000 mls @ 50 mls/hr 07/19/19 13:12 07/22/19 05:17 Normal Saline 0.9% IV 1,000 mls .Q20H ELLEN Administration Methylprednisolone Sodium Succinate 20 mg 07/21/19 14:00 07/23/19 05:16 Solu-Medrol IVP 20 mg Q8HR ELLEN Administration Multivitamins 1 tab 07/20/19 09:00 07/22/19 08:47 Theragran PO 1 tab DAILY ELLEN Administration Oxycodone/Acetaminophen 1 tab 07/21/19 10:09 07/22/19 06:19 Percocet 5/325 PO 1 tab Q4H PRN Administration Mild-Moderate Pain (1-5) Oxycodone/Acetaminophen 2 tab 07/21/19 10:09 07/22/19 22:42 Percocet 5/325 PO 2 tab Q4H PRN Administration Severe Pain (7-10) Pantoprazole Sodium 40 mg 07/19/19 21:00 07/22/19 20:52 Protonix PO 40 mg BID ELLEN Administration Pioglitazone HCl 30 mg 07/20/19 09:00 07/22/19 08:46 Actos PO 30 mg DAILY ELLEN Administration Sodium Chloride 10 ml 07/21/19 21:00 07/22/19 20:52 Flush - Normal Saline IVF 10 ml Q12HR ELLEN Administration - Exam General Appearance: NAD, awake alert ENT: moist mucosa Heart: RRR, no murmur Respiratory - other findings: occ rhonchi on left, good air movement throughout Gastrointestinal: normal bowel sounds Extremities: no edema Psychiatric: normal affect, normal behavior, A&O x 3 Hosp A/P (1) Acute and chronic respiratory failure with hypoxia Code(s): J96.21 - ACUTE AND CHRONIC RESPIRATORY FAILURE WITH HYPOXIA Status: Acute (2) Pneumonia due to 2019 novel coronavirus Code(s): U07.1 - COVID-19; J12.89 - OTHER VIRAL PNEUMONIA Status: Acute (3) COVID-19 virus infection Code(s): U07.1 - COVID-19 Status: Acute (4) Type 2 acute myocardial infarction Code(s): I21.A1 - MYOCARDIAL INFARCTION TYPE 2 Status: Acute (5) CKD (chronic kidney disease), stage IV Code(s): N18.4 - CHRONIC KIDNEY DISEASE, STAGE 4 (SEVERE) Status: Chronic (6) Rheumatoid arthritis Code(s): M06.9 - RHEUMATOID ARTHRITIS, UNSPECIFIED Status: Chronic (7) HTN (hypertension) Code(s): I10 - ESSENTIAL (PRIMARY) HYPERTENSION Status: Chronic - Plan continue antibiotics, social problems specialist, respiratory therapy, DVT proph w/SCDs Continue pulmonary support Resp isolation Continue Zithromax/Hydroxychloroquine. Cefepime for total of 5-7 days as well. Repeat Covid-19 testing still positive for the virus High-flow O2 via [place] Curbsided Dr. Randolph and he agreed with current treatment course, did recommend trying a low dose steroid given her underlying lung disease Trying prone positioning Resumed home BP meds AM lab: none tomorrow
[2019-07-23] MEDS: Aspirin 81 mg Enteric Coated Tablet PO SCH (08:10)
[2019-07-23] MEDS: Ferrous Sulfate 325 MG TAB PO SCH (08:10)
[2019-07-23] MEDS: Hydroxychloroquine Sulfate 200 MG TAB PO SCH (08:11)
[2019-07-23] MEDS: oxyCODONE/Acetaminophen 5 mg/325 mg Tablet PO PRN (08:11)
[2019-07-23] MEDS: Gabapentin 400 MG CAP PO SCH ×2 (08:11→20:34)
[2019-07-23] MEDS: Folic Acid 1 MG TAB PO SCH (08:11)
[2019-07-23] MEDS: Pioglitazone HCl 15 MG TAB PO SCH (08:11)
[2019-07-23] MEDS: DULoxetine 60 MG CAP PO SCH ×2 (08:11→20:34)
[2019-07-23] MEDS: Bupropion 150 MG XL TAB PO SCH (08:11)
[2019-07-23] MEDS: Multivit, Therapeutic 1 TAB PO SCH (08:11)
[2019-07-23] MEDS ORDERED: Enoxaparin Sodium 30 MG/0.3 ML SYRINGE SC SCH (10:45)
[2019-07-23] MEDS: Atorvastatin Calcium 10 MG TAB PO SCH (20:34)
[2019-07-23] MEDS: Azithromycin 500 MG in Sodium Chloride 0.9% 250 ML 250 ML IVPB SCH (20:35)
[2019-07-23] MEDS: Amitriptyline HCl 25 MG TAB PO SCH (20:35)
[2019-07-24] MEDS: oxyCODONE/Acetaminophen 5 mg/325 mg Tablet PO PRN ×4 (00:02→21:40)
[2019-07-24] MEDS: PROVENTIL INHALER 6.7 G (200 INHALATIONS) INH SCH ×7 (02:30→22:31)
[2019-07-24] MEDS: Cefepime 1 GM in Sodium Chloride 0.9% 100 ML IVPB SCH ×2 (03:23→18:27)
[2019-07-24] MEDS ORDERED: Dextrose 50% Abboject 50 ML SYRINGE IVP PRN (04:45)
[2019-07-24] MEDS ORDERED: Dextrose 5% in Water 1,000 ML IV PRN (04:45)
[2019-07-24] MEDS: methylPREDNISolone Sod Succ 40 MG VIAL IVP SCH (05:27)
[2019-07-24] MEDS: HumaLOG 300 UNITS/3 ML VIAL SC PRN ×3 (05:27→18:32)
--- NOTE | 2019-07-24 07:28 | PDOC.HOSPP ---
- Subjective Encounter Date: 07/24/19 Encounter Time: 10:00 Subjective: Patient with no change in symptoms. Still requiring high flow O2. Getting tired of being stuck in the hospital. - Objective Vital Signs & Weight: Vital Signs (12 hours) Temp Pulse Resp BP Pulse Ox 07/24/19 04:04 97.6 F 91 16 140/79 91 L 07/24/19 02:01 90 L 07/24/19 00:18 97.7 F 104 H 18 131/63 89 L 07/23/19 21:00 98.6 F 108 H 20 144/69 H 91 L Weight Admit Weight 211 lb Weight 193 lb 1.6 oz I&O: 07/23/19 07/24/19 07/25/19 06:59 06:59 06:59 Intake Total 1746 1200 600 Output Total 468 455 0659 Balance 1096 700 -400 Result Diagrams: 07/21/19 11:01 07/24/19 07:11 Additional Labs: Accuchecks 07/24/19 03:38 POC Glucose 467 H Hospitalist ROS - Review of Systems Constitutional: denies: fever, chills Respiratory: reports: cough, shortness of breath Cardiovascular: denies: chest pain, palpitations, orthopnea Gastrointestinal: denies: nausea, vomiting, abdominal pain - Medication Medications: Active Medications Generic Name Dose Route Start Last Admin Trade Name Freq PRN Reason Stop Dose Admin Acetaminophen 1,000 mg 07/18/19 18:43 07/19/19 19:57 Tylenol PO 1,000 mg Q6H PRN Administration Mild Pain (1-3) Albuterol Sulfate 2 puff 07/18/19 22:30 07/24/19 05:28 Proventil Hfa INH 2 puff [id number] ELLEN Administration Amitriptyline HCl 25 mg 07/19/19 21:00 07/23/19 20:35 Elavil PO 25 mg HS ELLEN Administration Aspirin 81 mg 07/20/19 09:00 07/23/19 08:10 Ecotrin PO 81 mg DAILY ELLEN Administration Atorvastatin Calcium 10 mg 07/19/19 21:00 07/23/19 20:34 Lipitor PO 10 mg HS ELLEN Administration Bupropion HCl 300 mg 07/20/19 09:00 07/23/19 08:11 Wellbutrin Xl PO 300 mg DAILY ELLEN Administration Diltiazem HCl 180 mg 07/20/19 09:00 07/23/19 08:11 Cardizem Cd PO 180 mg DAILY ELLEN Administration Duloxetine HCl 60 mg 07/19/19 21:00 07/23/19 20:34 Cymbalta PO 60 mg BID ELLEN Administration Ferrous Sulfate 325 mg 07/20/19 08:00 07/23/19 08:10 Feosol PO 325 mg QAM-WM ELLEN Administration Folic Acid 1 mg 07/20/19 09:00 07/23/19 08:11 Folvite PO 1 mg DAILY ELLEN Administration Gabapentin 1,200 mg 07/19/19 21:00 07/23/19 20:34 Neurontin PO 1,200 mg BID ELLEN Administration Hydroxychloroquine Sulfate 200 mg 07/20/19 09:00 07/23/19 08:11 Plaquenil PO 200 mg DAILY ELLEN Administration Azithromycin 500 mg/ Sodium 250 mls @ 250 mls/hr 07/18/19 20:00 07/23/19 20: 35 Chloride IVPB 250 mls Q24HR ELLEN Administration Cefepime HCl 1 gm/ Sodium 100 mls @ 200 mls/hr 07/19/19 04:00 07/24/19 03:23 Chloride IVPB 100 mls 0400,1600 ELLEN Administration Insulin Human Lispro 0 units 07/24/19 04:45 07/24/19 05:27 Humalog SC 13 unit .AGGRESSIVE SLIDING PRN Administration AGGRESSIVE SLIDING SCALE Protocol Methylprednisolone Sodium Succinate 20 mg 07/21/19 14:00 07/24/19 05:27 Solu-Medrol IVP 20 mg Q8HR ELLEN Administration Multivitamins 1 tab 07/20/19 09:00 07/23/19 08:11 Theragran PO 1 tab DAILY ELLEN Administration Oxycodone/Acetaminophen 1 tab 07/21/19 10:09 07/24/19 05:26 Percocet 5/325 PO 1 tab Q4H PRN Administration Mild-Moderate Pain (1-5) Oxycodone/Acetaminophen 2 tab 07/21/19 10:09 07/22/19 22:42 Percocet 5/325 PO 2 tab Q4H PRN Administration Severe Pain (7-10) Pantoprazole Sodium 40 mg 07/19/19 21:00 07/23/19 20:35 Protonix PO 40 mg BID ELLEN Administration Pioglitazone HCl 30 mg 07/20/19 09:00 07/23/19 08:11 Actos PO 30 mg DAILY ELLEN Administration Sodium Chloride 10 ml 07/21/19 21:00 07/23/19 22:19 Flush - Normal Saline IVF 10 ml Q12HR ELLEN Administration - Exam General Appearance: NAD, awake alert ENT: moist mucosa Heart: RRR, no murmur, no gallops, no rubs Respiratory: CTAB, no wheezes, no rales, no ronchi Gastrointestinal: soft, non-tender, non-distended, normal bowel sounds Psychiatric: normal affect, normal behavior, A&O x 3 Hosp A/P (1) Acute and chronic respiratory failure with hypoxia Code(s): J96.21 - ACUTE AND CHRONIC RESPIRATORY FAILURE WITH HYPOXIA Status: Acute (2) Pneumonia due to 2019 novel coronavirus Code(s): U07.1 - COVID-19; J12.89 - OTHER VIRAL PNEUMONIA Status: Acute (3) COVID-19 virus infection Code(s): U07.1 - COVID-19 Status: Acute (4) Type 2 acute myocardial infarction Code(s): I21.A1 - MYOCARDIAL INFARCTION TYPE 2 Status: Acute (5) CKD (chronic kidney disease), stage IV Code(s): N18.4 - CHRONIC KIDNEY DISEASE, STAGE 4 (SEVERE) Status: Chronic (6) Rheumatoid arthritis Code(s): M06.9 - RHEUMATOID ARTHRITIS, UNSPECIFIED Status: Chronic (7) HTN (hypertension) Code(s): I10 - ESSENTIAL (PRIMARY) HYPERTENSION Status: Chronic - Plan continue antibiotics, psychiatric social worker supervisor, respiratory therapy, DVT proph w/SCDs Continue pulmonary support Resp isolation Continue Hydroxychloroquine for RA. Cefepime completing 6 days today, will d/c. Will d/c Azithromycin as well. Repeat Covid-19 testing still positive for the virus High-flow O2 via [place] Curbsided Dr. Randolph and he agreed with current treatment course Tried some IV steroids, but no improvement so will d/c Trying prone positioning though not seeing any response yet Resumed home BP meds AM lab: CBC, BMP, Mg
[2019-07-24 07:39] LABS: ALT (SGPT) 13 U/L (8-55); AST (SGOT) 16 U/L (5-34); Albumin 3.3 g/dL (3.4-4.8); Alkaline Phosphatase 57 U/L (40-110); Anion Gap 15 mmol/L (10-20); BUN (Urea Nitrogen) 35 mg/dL (9.8-20.1); Bilirubin, Total 0.2 mg/dL (0.2-1.2); Calc. Creatinine Clearance 41 mL/min (70-130); Calcium 9.2 mg/dL (7.8-10.44); Carbon Dioxide 27 mmol/L (23-31); Chloride 102 mmol/L (98-107); Estimated GFR-MDRD 28; Globulin 3.1 g/dL (2.4-3.5); Glucose 400 mg/dL (80-115); Magnesium 2.2 mg/dL (1.6-2.6); Potassium 4.9 mmol/L (3.5-5.1); Protein, Total 6.4 g/dL (6.0-8.3); Sodium 139 mmol/L (136-145)
[2019-07-24] MEDS ORDERED: Enoxaparin Sodium 40 MG/0.4 ML SYRINGE SC SCH (09:00)
[2019-07-24] MEDS: Enoxaparin Sodium 30 MG/0.3 ML SYRINGE SC SCH (09:37)
[2019-07-24] MEDS: Bupropion 150 MG XL TAB PO SCH (09:38)
[2019-07-24] MEDS: Pioglitazone HCl 15 MG TAB PO SCH (09:38)
[2019-07-24] MEDS: Multivit, Therapeutic 1 TAB PO SCH (09:38)
[2019-07-24] MEDS: Folic Acid 1 MG TAB PO SCH (09:39)
[2019-07-24] MEDS: Gabapentin 400 MG CAP PO SCH ×2 (09:39→21:40)
[2019-07-24] MEDS: Aspirin 81 mg Enteric Coated Tablet PO SCH (09:39)
[2019-07-24] MEDS: Hydroxychloroquine Sulfate 200 MG TAB PO SCH (09:39)
[2019-07-24] MEDS: Ferrous Sulfate 325 MG TAB PO SCH (09:39)
[2019-07-24] MEDS: DULoxetine 60 MG CAP PO SCH ×2 (09:39→21:41)
[2019-07-24] MEDS: Atorvastatin Calcium 10 MG TAB PO SCH (21:41)
[2019-07-24] MEDS: Amitriptyline HCl 25 MG TAB PO SCH (21:41)
[2019-07-25] MEDS: PROVENTIL INHALER 6.7 G (200 INHALATIONS) INH SCH ×6 (03:49→22:35)
[2019-07-25 04:44] LABS: #Lymphocytes 1.5 thou/uL (1.20-3.40); #Monocytes 0.8 thou/uL (0.11-0.59); #Neutrophils 4.8 thou/uL (1.40-6.50); %Basophils 0.4 % (0.0-1.0); %Eosinophils 0.3 % (0.0-10.0); %Lymphocytes 21.1 % (21.0-51.0); %Monocytes 11.4 % (0.0-10.0); %Neutrophils 66.8 % (42.0-75.0); Hemoglobin 10.9 g/dL (12.0-16.0); Mean Corpuscular HGB CONC 31.5 g/dL (32.0-36.0); Mean Corpuscular Hemoglobin 30.5 pg (27.0-31.0); Mean Corpuscular Volume 96.8 fL (78.0-98.0); Mean Platelet Volume 9.4 fL (7.4-10.4); Platelet Count 190 thou/uL (130-400); RBC Distribution Width 18.6 % (11.5-14.5); Red Blood Cell (RBC) Count 3.57 mill/uL (4.20-5.40); White Blood Cell (WBC) Count 7.2 thou/uL (4.8-10.8)
[2019-07-25 05:05] LABS: Anion Gap 12 mmol/L (10-20); BUN (Urea Nitrogen) 35 mg/dL (9.8-20.1); Calc. Creatinine Clearance 46 mL/min (70-130); Calcium 9.5 mg/dL (7.8-10.44); Carbon Dioxide 28 mmol/L (23-31); Chloride 103 mmol/L (98-107); Estimated GFR-MDRD 32; Glucose 136 mg/dL (80-115); Potassium 4.3 mmol/L (3.5-5.1); Sodium 139 mmol/L (136-145)
[2019-07-25] MEDS: Aspirin 81 mg Enteric Coated Tablet PO SCH (09:36)
[2019-07-25] MEDS: Gabapentin 400 MG CAP PO SCH ×2 (09:36→20:51)
[2019-07-25] MEDS: Hydroxychloroquine Sulfate 200 MG TAB PO SCH (09:36)
[2019-07-25] MEDS: Bupropion 150 MG XL TAB PO SCH (09:36)
[2019-07-25] MEDS: Ferrous Sulfate 325 MG TAB PO SCH (09:37)
[2019-07-25] MEDS: Enoxaparin Sodium 30 MG/0.3 ML SYRINGE SC SCH (09:37)
[2019-07-25] MEDS: Multivit, Therapeutic 1 TAB PO SCH (09:37)
[2019-07-25] MEDS: DULoxetine 60 MG CAP PO SCH ×2 (09:37→20:51)
[2019-07-25] MEDS: Folic Acid 1 MG TAB PO SCH (09:37)
[2019-07-25] MEDS: Pioglitazone HCl 15 MG TAB PO SCH (09:37)
[2019-07-25] MEDS: Cyanocobalamin 1000 MCG/ML VIAL IM SCH (09:40)
--- NOTE | 2019-07-25 12:13 | PDOC.HOSPP ---
- Subjective Encounter Date: 07/25/19 Encounter Time: 12:10 Subjective: f/u for COVID-19 PNA remaining on high-flow NC requirement hospital day #7. Completed Zithromax/Cefepime without significant improvement in hypoxia. - Objective Vital Signs & Weight: Vital Signs (12 hours) Temp Pulse Resp BP Pulse Ox 07/25/19 09:40 98.5 F 109 H 20 156/70 H 88 L 07/25/19 08:00 88 L 07/25/19 07:35 91 L 07/25/19 04:40 98.2 F 97 18 134/64 90 L 07/25/19 00:34 99.3 F 102 H 20 130/65 91 L Weight Admit Weight 211 lb Weight 193 lb 1.6 oz I&O: 07/24/19 07/25/19 07/26/19 06:59 06:59 06:59 Intake Total 1200 2750 Output Total 500 2900 Balance 700 -150 Result Diagrams: 07/25/19 04:33 07/25/19 04:33 Additional Labs: Accuchecks 07/24/19 07/24/19 07/24/19 19:44 15:26 12:24 POC Glucose 181 H 258 H 353 H EKG Reviewed by me: Yes (Tele - SR) Hospitalist ROS - Medication Medications: Active Medications Generic Name Dose Route Start Last Admin Trade Name Freq PRN Reason Stop Dose Admin Acetaminophen 1,000 mg 07/18/19 18:43 07/19/19 19:57 Tylenol PO 1,000 mg Q6H PRN Administration Mild Pain (1-3) Albuterol Sulfate 2 puff 07/18/19 22:30 07/25/19 09:37 Proventil Hfa INH 2 puff [id number] ELLEN Administration Amitriptyline HCl 25 mg 07/19/19 21:00 07/24/19 21:41 Elavil PO 25 mg HS ELLEN Administration Aspirin 81 mg 07/20/19 09:00 07/25/19 09:36 Ecotrin PO 81 mg DAILY ELLEN Administration Atorvastatin Calcium 10 mg 07/19/19 21:00 07/24/19 21:41 Lipitor PO 10 mg HS ELLEN Administration Bupropion HCl 300 mg 07/20/19 09:00 07/25/19 09:36 Wellbutrin Xl PO 300 mg DAILY ELLEN Administration Cyanocobalamin 1,000 mcg 07/25/19 09:00 07/25/19 09:40 Vitamin B-12 IM 1,000 mcg Q7DAYS ELLEN Administration Diltiazem HCl 180 mg 07/20/19 09:00 07/25/19 09:37 Cardizem Cd PO 180 mg DAILY ELLEN Administration Duloxetine HCl 60 mg 07/19/19 21:00 07/25/19 09:37 Cymbalta PO 60 mg BID ELLEN Administration Enoxaparin Sodium 30 mg 07/24/19 09:00 07/25/19 09:37 Lovenox SC 30 mg 09 ELLEN Administration Ferrous Sulfate 325 mg 07/20/19 08:00 07/25/19 09:37 Feosol PO 325 mg QAM-WM ELLEN Administration Folic Acid 1 mg 07/20/19 09:00 07/25/19 09:37 Folvite PO 1 mg DAILY ELLEN Administration Gabapentin 1,200 mg 07/19/19 21:00 07/25/19 09:36 Neurontin PO 1,200 mg BID ELLEN Administration Hydroxychloroquine Sulfate 200 mg 07/20/19 09:00 07/25/19 09:36 Plaquenil PO 200 mg DAILY ELLEN Administration Insulin Human Lispro 0 units 07/24/19 04:45 07/24/19 18:32 Humalog SC 9 unit .AGGRESSIVE SLIDING PRN Administration AGGRESSIVE SLIDING SCALE Protocol Multivitamins 1 tab 07/20/19 09:00 07/25/19 09:37 Theragran PO 1 tab DAILY ELLEN Administration Oxycodone/Acetaminophen 1 tab 07/21/19 10:09 07/24/19 21:40 Percocet 5/325 PO 1 tab Q4H PRN Administration Mild-Moderate Pain (1-5) Oxycodone/Acetaminophen 2 tab 07/21/19 10:09 07/22/19 22:42 Percocet 5/325 PO 2 tab Q4H PRN Administration Severe Pain (7-10) Pantoprazole Sodium 40 mg 07/19/19 21:00 07/25/19 09:37 Protonix PO 40 mg BID ELLEN Administration Pioglitazone HCl 30 mg 07/20/19 09:00 07/25/19 09:37 Actos PO 30 mg DAILY ELLEN Administration Sodium Chloride 10 ml 07/21/19 21:00 07/25/19 09:38 Flush - Normal Saline IVF 10 ml Q12HR ELLEN Administration - Exam General Appearance: NAD, awake alert Eye: PERRL, anicteric sclera ENT: normocephalic atraumatic, no oropharyngeal lesions Neck: supple, symmetric, no JVD, no thyromegaly Heart: RRR, no murmur, no gallops, no rubs, normal peripheral pulses Respiratory: tachypneic Respiratory - other findings: coarse sounds bilat, diminished in bases Gastrointestinal: soft, non-tender, non-distended, normal bowel sounds, no palpable masses Extremities: no cyanosis, no clubbing, no edema Skin: normal turgor, no lesions Neurological: cranial nerve grossly intact, no new deficit Musculoskeletal: normal tone, generalized weakness Psychiatric: normal affect, A&O x 3 Hosp A/P (1) Acute and chronic respiratory failure with hypoxia Code(s): J96.21 - ACUTE AND CHRONIC RESPIRATORY FAILURE WITH HYPOXIA Status: Acute Plan: Remains on high-flow NC, check ABG today to confirm pulse ox measurement (2) COVID-19 virus infection Code(s): U07.1 - COVID-19 Status: Acute Plan: Resp isolation, Bronchodilators, completed Zithromax/Cefepime (3) Pneumonia due to 2019 novel coronavirus Code(s): U07.1 - COVID-19; J12.89 - OTHER VIRAL PNEUMONIA Status: Acute Plan: See above (4) NSTEMI (non-ST elevated myocardial infarction) Code(s): I21.4 - NON-ST ELEVATION (NSTEMI) MYOCARDIAL INFARCTION Status: Acute (5) CKD (chronic kidney disease), stage IV Code(s): N18.4 - CHRONIC KIDNEY DISEASE, STAGE 4 (SEVERE) Status: Chronic - Plan PT/OT, social welfare administrator, respiratory therapy, out of bed/ambulate, DVT proph w/ SCDs Continue pulmonary support Resp isolation currently PT consult for functional assessment Continue Hydroxychloroquine 200mg daily High-flow O2 via [place] Resume home BP meds ABG today PCXR in am ? Swing bed options
[2019-07-25 12:19] VITALS: BMI 31.1
[2019-07-25 16:44] LABS: Actual Bicarbonate (HCO3a) 31.7 mEq/L (22-28); CO2 Tension 56.3 mmHg (35.0-45.0); Calcium, Ionized 1.22 mmol/L (1.12-1.30); Carboxyhemoglobin (COHb) 1.3 gm% (0.0-3.0); Hemoglobin (Hb) 12.1 g/dL (12.0-16.0); O2 Tension (PaO2) 63.5 mmHg (> 80.0); Potassium - ABG Lab 4.36 mmol/L (3.70-5.30); pH, Arterial 7.37 (7.35-7.45)
[2019-07-25 16:45] LABS: ALV-art Gradient 436.525 (0-20)
[2019-07-25] MEDS: HumaLOG 300 UNITS/3 ML VIAL SC PRN (17:49)
[2019-07-25] MEDS: oxyCODONE/Acetaminophen 5 mg/325 mg Tablet PO PRN (17:50)
[2019-07-25] MEDS: Amitriptyline HCl 25 MG TAB PO SCH (20:51)
[2019-07-25] MEDS: Atorvastatin Calcium 10 MG TAB PO SCH (20:51)
[2019-07-26] MEDS: PROVENTIL INHALER 6.7 G (200 INHALATIONS) INH SCH ×6 (02:45→20:46)
[2019-07-26] MEDS: HumaLOG 300 UNITS/3 ML VIAL SC PRN ×3 (05:50→20:46)
[2019-07-26] MEDS: Aspirin 81 mg Enteric Coated Tablet PO SCH (08:08)
[2019-07-26] MEDS: Ferrous Sulfate 325 MG TAB PO SCH (08:08)
[2019-07-26] MEDS: Bupropion 150 MG XL TAB PO SCH (08:08)
[2019-07-26] MEDS: Gabapentin 400 MG CAP PO SCH ×2 (08:09→20:17)
[2019-07-26] MEDS: DULoxetine 60 MG CAP PO SCH ×2 (08:09→20:16)
[2019-07-26] MEDS: Folic Acid 1 MG TAB PO SCH (08:09)
[2019-07-26] MEDS: Enoxaparin Sodium 30 MG/0.3 ML SYRINGE SC SCH (08:09)
[2019-07-26] MEDS: Pioglitazone HCl 15 MG TAB PO SCH (08:10)
[2019-07-26] MEDS: Hydroxychloroquine Sulfate 200 MG TAB PO SCH (08:10)
[2019-07-26] MEDS: Multivit, Therapeutic 1 TAB PO SCH (08:10)
--- NOTE | 2019-07-26 16:10 | PDOC.HOSPP ---
- Subjective Encounter Date: 07/26/19 Encounter Time: 16:00 Subjective: f/u for COVID PNA and hypoxic resp failure on high flow NC @ 30L/min. No new issues noted other than tired of being in the hospital. - Objective Vital Signs & Weight: Vital Signs (12 hours) Temp Pulse Resp BP Pulse Ox 07/26/19 13:31 105 H 20 92 L 07/26/19 12:00 98.7 F 105 H 20 136/63 92 L 07/26/19 10:31 95 07/26/19 08:25 98.0 F 95 20 139/67 95 07/26/19 08:20 95 Weight Admit Weight 211 lb Weight 193 lb 1.6 oz I&O: 07/25/19 07/26/19 07/27/19 06:59 06:59 06:59 Intake Total 2750 770 Output Total 2900 1050 Balance -150 -280 Result Diagrams: 07/25/19 04:33 07/25/19 04:33 Additional Labs: Accuchecks 07/26/19 07/26/19 07/25/19 12:33 05:52 20:59 POC Glucose 254 H 249 H 80 07/25/19 17:36 POC Glucose 262 H Microbiology 07/18/19 14:06 Throat - Pending Group A Streptococcus Screen (RAMYA) - Final 07/18/19 14:06 Nasal swab Influenza Types A,B Direct EIA - Final Laboratory Tests 07/18/19 07/18/19 07/18/19 13:47 13:47 13:47 D-Dimer 1.09 H Creatinine 1.96 H Ferritin Lactate Dehydrogenase Troponin I 0.042 H C-Reactive Protein 07/18/19 07/18/19 07/18/19 16:38 19:07 19:07 D-Dimer Creatinine Ferritin Lactate Dehydrogenase 326 H Troponin I 0.047 H 0.054 H C-Reactive Protein 07/18/19 07/18/19 19:07 19:07 D-Dimer Creatinine Ferritin 349.71 H Lactate Dehydrogenase Troponin I C-Reactive Protein 1.21 H Hospitalist ROS - Medication Medications: Active Medications Generic Name Dose Route Start Last Admin Trade Name Freq PRN Reason Stop Dose Admin Acetaminophen 1,000 mg 07/18/19 18:43 07/19/19 19:57 Tylenol PO 1,000 mg Q6H PRN Administration Mild Pain (1-3) Albuterol Sulfate 2 puff 07/18/19 22:30 07/26/19 13:31 Proventil Hfa INH 2 puff [id number] ELLEN Administration Amitriptyline HCl 25 mg 07/19/19 21:00 07/25/19 20:51 Elavil PO 25 mg HS ELLEN Administration Aspirin 81 mg 07/20/19 09:00 07/26/19 08:08 Ecotrin PO 81 mg DAILY ELLEN Administration Atorvastatin Calcium 10 mg 07/19/19 21:00 07/25/19 20:51 Lipitor PO 10 mg HS ELLEN Administration Bupropion HCl 300 mg 07/20/19 09:00 07/26/19 08:08 Wellbutrin Xl PO 300 mg DAILY ELLEN Administration Cyanocobalamin 1,000 mcg 07/25/19 09:00 07/25/19 09:40 Vitamin B-12 IM 1,000 mcg Q7DAYS ELLEN Administration Diltiazem HCl 180 mg 07/20/19 09:00 07/26/19 08:08 Cardizem Cd PO 180 mg DAILY ELLEN Administration Duloxetine HCl 60 mg 07/19/19 21:00 07/26/19 08:09 Cymbalta PO 60 mg BID ELLEN Administration Enoxaparin Sodium 30 mg 07/24/19 09:00 07/26/19 08:09 Lovenox SC 30 mg 0900 ELLEN Administration Ferrous Sulfate 325 mg 07/20/19 08:00 07/26/19 08:08 Feosol PO 325 mg QAM-WM ELLEN Administration Folic Acid 1 mg 07/20/19 09:00 07/26/19 08:09 Folvite PO 1 mg DAILY ELLEN Administration Gabapentin 1,200 mg 07/19/19 21:00 07/26/19 08:09 Neurontin PO 1,200 mg BID ELLEN Administration Hydroxychloroquine Sulfate 200 mg 07/20/19 09:00 07/26/19 08:10 Plaquenil PO 200 mg DAILY ELLEN Administration Insulin Human Lispro 0 units 07/24/19 04:45 07/26/19 13:32 Humalog SC 9 unit .AGGRESSIVE SLIDING PRN Administration AGGRESSIVE SLIDING SCALE Protocol Multivitamins 1 tab 07/20/19 09:00 07/26/19 08:10 Theragran PO 1 tab DAILY ELLEN Administration Oxycodone/Acetaminophen 1 tab 07/21/19 10:09 07/24/19 21:40 Percocet 5/325 PO 1 tab Q4H PRN Administration Mild-Moderate Pain (1-5) Oxycodone/Acetaminophen 2 tab 07/21/19 10:09 07/25/19 17:50 Percocet 5/325 PO 2 tab Q4H PRN Administration Severe Pain (7-10) Pantoprazole Sodium 40 mg 07/19/19 21:00 07/26/19 08:10 Protonix PO 40 mg BID ELLEN Administration Pioglitazone HCl 30 mg 07/20/19 09:00 07/26/19 08:10 Actos PO 30 mg DAILY ELLEN Administration Sodium Chloride 10 ml 07/21/19 21:00 07/26/19 08:11 Flush - Normal Saline IVF 10 ml Q12HR ELLEN Administration - Exam General Appearance: awake alert Eye: PERRL, anicteric sclera ENT: normocephalic atraumatic, no oropharyngeal lesions Neck: supple, symmetric, no JVD, no thyromegaly Heart: RRR, no gallops, no rubs, normal peripheral pulses Heart - other findings: S1, S2 Respiratory: tachypneic Respiratory - other findings: diminished in bases, few scattered coarse sounds Gastrointestinal: soft, non-tender, non-distended, normal bowel sounds, no palpable masses Extremities: no cyanosis, no clubbing, no edema Skin: normal turgor Neurological: cranial nerve grossly intact, no new deficit Musculoskeletal: normal tone, generalized weakness Psychiatric: normal affect, A&O x 3 Hosp A/P (1) Acute and chronic respiratory failure with hypoxia Code(s): J96.21 - ACUTE AND CHRONIC RESPIRATORY FAILURE WITH HYPOXIA Status: Acute (2) COVID-19 virus infection Code(s): U07.1 - COVID-19 Status: Acute (3) Pneumonia due to 2019 novel coronavirus Code(s): U07.1 - COVID-19; J12.89 - OTHER VIRAL PNEUMONIA Status: Acute (4) NSTEMI (non-ST elevated myocardial infarction) Code(s): I21.4 - NON-ST ELEVATION (NSTEMI) MYOCARDIAL INFARCTION Status: Acute (5) CKD (chronic kidney disease), stage IV Code(s): N18.4 - CHRONIC KIDNEY DISEASE, STAGE 4 (SEVERE) Status: Chronic - Plan Continue pulmonary support Resp isolation currently PT consult for functional assessment Continue Hydroxychloroquine 200mg daily High-flow O2 via NC and wean as tolerated Prednisone 40mg po daily Resume home BP meds Chloraseptic spray BID PRN ? Swing bed vs Rehab options
[2019-07-26] MEDS ORDERED: Chloraseptic Spray 180 ml Bottle PO PRN (16:11)
[2019-07-26] MEDS ORDERED: predniSONE 20 MG TAB PO SCH (16:15)
[2019-07-26] MEDS: Atorvastatin Calcium 10 MG TAB PO SCH (20:16)
[2019-07-26] MEDS: Amitriptyline HCl 25 MG TAB PO SCH (20:17)
[2019-07-27] MEDS: PROVENTIL INHALER 6.7 G (200 INHALATIONS) INH SCH ×6 (03:25→20:09)
[2019-07-27] MEDS: HumaLOG 300 UNITS/3 ML VIAL SC PRN ×4 (05:42→20:25)
[2019-07-27] MEDS: Aspirin 81 mg Enteric Coated Tablet PO SCH (08:28)
[2019-07-27] MEDS: Gabapentin 400 MG CAP PO SCH ×2 (08:28→20:09)
[2019-07-27] MEDS: Multivit, Therapeutic 1 TAB PO SCH (08:29)
[2019-07-27] MEDS: Folic Acid 1 MG TAB PO SCH (08:29)
[2019-07-27] MEDS: Hydroxychloroquine Sulfate 200 MG TAB PO SCH (08:29)
[2019-07-27] MEDS: Bupropion 150 MG XL TAB PO SCH (08:29)
[2019-07-27] MEDS: Ferrous Sulfate 325 MG TAB PO SCH (08:30)
[2019-07-27] MEDS: predniSONE 20 MG TAB PO SCH (08:30)
[2019-07-27] MEDS: DULoxetine 60 MG CAP PO SCH ×2 (08:30→20:09)
[2019-07-27] MEDS: Pioglitazone HCl 15 MG TAB PO SCH (08:30)
[2019-07-27] MEDS: Enoxaparin Sodium 30 MG/0.3 ML SYRINGE SC SCH (08:30)
[2019-07-27] MEDS ORDERED: Insulin Glargine 10 UNITS in Pre-Filled Syringe 1 EACH SC SCH (13:15)
--- NOTE | 2019-07-27 13:17 | PDOC.HOSPP ---
- Subjective Encounter Date: 07/27/19 Encounter Time: 13:00 Subjective: f/u for COVID PNA remaining on high flow O2 via NC @ 30L/min. - Objective Vital Signs & Weight: Vital Signs (12 hours) Temp Pulse Resp BP BP Pulse Ox 07/27/19 11:29 97.3 F L 90 19 142/63 H 95 07/27/19 08:58 95.6 F L 84 20 143/69 H 97 07/27/19 07:10 95 07/27/19 02:40 87 20 124/61 95 Weight Admit Weight 211 lb Weight 193 lb 1.6 oz I&O: 07/26/19 07/27/19 07/28/19 06:59 06:59 06:59 Intake Total 770 1790 Output Total 1050 1850 Balance -280 -60 Result Diagrams: 07/25/19 04:33 07/25/19 04:33 Additional Labs: Accuchecks 07/27/19 07/27/19 07/26/19 11:41 05:46 20:39 POC Glucose 310 H 453 H 307 H 07/26/19 07/26/19 17:09 12:33 POC Glucose 117 H 254 H Microbiology 07/18/19 14:06 Throat - Pending Group A Streptococcus Screen (RAMYA) - Final 07/18/19 14:06 Nasal swab Influenza Types A,B Direct EIA - Final Laboratory Tests 07/18/19 07/18/19 07/18/19 13:47 13:47 13:47 D-Dimer 1.09 H Creatinine 1.96 H Ferritin Lactate Dehydrogenase Troponin I 0.042 H C-Reactive Protein 07/18/19 07/18/19 07/18/19 16:38 19:07 19:07 D-Dimer Creatinine Ferritin Lactate Dehydrogenase 326 H Troponin I 0.047 H 0.054 H C-Reactive Protein 07/18/19 07/18/19 19:07 19:07 D-Dimer Creatinine Ferritin 349.71 H Lactate Dehydrogenase Troponin I C-Reactive Protein 1.21 H EKG Reviewed by me: Yes (Tele - SR) Hospitalist ROS - Medication Medications: Active Medications Generic Name Dose Route Start Last Admin Trade Name Freq PRN Reason Stop Dose Admin Acetaminophen 1,000 mg 07/18/19 18:43 07/19/19 19:57 Tylenol PO 1,000 mg Q6H PRN Administration Mild Pain (1-3) Albuterol Sulfate 2 puff 07/18/19 22:30 07/27/19 11:45 Proventil Hfa INH 2 puff [id number] ELLEN Administration Amitriptyline HCl 25 mg 07/19/19 21:00 07/26/19 20:17 Elavil PO 25 mg HS ELLEN Administration Aspirin 81 mg 07/20/19 09:00 07/27/19 08:28 Ecotrin PO 81 mg DAILY ELLEN Administration Atorvastatin Calcium 10 mg 07/19/19 21:00 07/26/19 20:16 Lipitor PO 10 mg HS ELLEN Administration Bupropion HCl 300 mg 07/20/19 09:00 07/27/19 08:29 Wellbutrin Xl PO 300 mg DAILY ELLEN Administration Cyanocobalamin 1,000 mcg 07/25/19 09:00 07/25/19 09:40 Vitamin B-12 IM 1,000 mcg Q7DAYS ELLEN Administration Diltiazem HCl 180 mg 07/20/19 09:00 07/27/19 08:29 Cardizem Cd PO 180 mg DAILY ELLEN Administration Duloxetine HCl 60 mg 07/19/19 21:00 07/27/19 08:30 Cymbalta PO 60 mg BID ELLEN Administration Enoxaparin Sodium 30 mg 07/24/19 09:00 07/27/19 08:30 Lovenox SC 30 mg 0900 ELLEN Administration Ferrous Sulfate 325 mg 07/20/19 08:00 07/27/19 08:30 Feosol PO 325 mg QAM-WM ELLEN Administration Folic Acid 1 mg 07/20/19 09:00 07/27/19 08:29 Folvite PO 1 mg DAILY ELLEN Administration Gabapentin 1,200 mg 07/19/19 21:00 07/27/19 08:28 Neurontin PO 1,200 mg BID ELLEN Administration Hydroxychloroquine Sulfate 200 mg 07/20/19 09:00 07/27/19 08:29 Plaquenil PO 200 mg DAILY ELLEN Administration Insulin Human Lispro 0 units 07/24/19 04:45 07/27/19 11:46 Humalog SC 11 unit .AGGRESSIVE SLIDING PRN Administration AGGRESSIVE SLIDING SCALE Protocol Insulin Human Lispro 0 units 07/24/19 04:45 07/26/19 20:46 Humalog SC 4 unit .BEDTIME SLIDING SC PRN Administration BEDTIME SLIDING SCALE Protocol Multivitamins 1 tab 07/20/19 09:00 07/27/19 08:29 Theragran PO 1 tab DAILY ELLEN Administration Oxycodone/Acetaminophen 1 tab 07/21/19 10:09 07/24/19 21:40 Percocet 5/325 PO 1 tab Q4H PRN Administration Mild-Moderate Pain (1-5) Oxycodone/Acetaminophen 2 tab 07/21/19 10:09 07/25/19 17:50 Percocet 5/325 PO 2 tab Q4H PRN Administration Severe Pain (7-10) Pantoprazole Sodium 40 mg 07/19/19 21:00 07/27/19 08:30 Protonix PO 40 mg BID ELLEN Administration Pioglitazone HCl 30 mg 07/20/19 09:00 07/27/19 08:30 Actos PO 30 mg DAILY ELLEN Administration Prednisone 40 mg 07/27/19 08:00 07/27/19 08:30 Prednisone PO 40 mg QAM-WM ELLEN Administration Sodium Chloride 10 ml 07/21/19 21:00 07/27/19 08:57 Flush - Normal Saline IVF 10 ml Q12HR ELLEN Administration - Exam General Appearance: NAD, awake alert Eye: PERRL, anicteric sclera ENT: normocephalic atraumatic, no oropharyngeal lesions Neck: supple, symmetric, no JVD, no thyromegaly Heart: RRR, no murmur, no gallops, no rubs, normal peripheral pulses Heart - other findings: S1, S2 Respiratory: tachypneic Respiratory - other findings: few scattered rhonchi Gastrointestinal: soft, non-tender, non-distended, normal bowel sounds, no palpable masses Extremities: no cyanosis, no clubbing, no edema Skin: normal turgor, no lesions Neurological: cranial nerve grossly intact, no new deficit Musculoskeletal: normal tone, generalized weakness Psychiatric: normal affect, A&O x 3 Hosp A/P (1) Acute and chronic respiratory failure with hypoxia Code(s): J96.21 - ACUTE AND CHRONIC RESPIRATORY FAILURE WITH HYPOXIA Status: Acute Plan: Continue high flow O2 and wean as indicated (2) COVID-19 virus infection Code(s): U07.1 - COVID-19 Status: Acute (3) Pneumonia due to 2019 novel coronavirus Code(s): U07.1 - COVID-19; J12.89 - OTHER VIRAL PNEUMONIA Status: Acute (4) NSTEMI (non-ST elevated myocardial infarction) Code(s): I21.4 - NON-ST ELEVATION (NSTEMI) MYOCARDIAL INFARCTION Status: Acute (5) CKD (chronic kidney disease), stage IV Code(s): N18.4 - CHRONIC KIDNEY DISEASE, STAGE 4 (SEVERE) Status: Chronic - Plan 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 Swing bed vs Rehab options
[2019-07-27] MEDS: oxyCODONE/Acetaminophen 5 mg/325 mg Tablet PO PRN (18:38)
[2019-07-27] MEDS: Amitriptyline HCl 25 MG TAB PO SCH (20:09)
[2019-07-27] MEDS: Atorvastatin Calcium 10 MG TAB PO SCH (20:09)
[2019-07-28] MEDS: oxyCODONE/Acetaminophen 5 mg/325 mg Tablet PO PRN ×2 (00:01→13:35)
[2019-07-28] MEDS: PROVENTIL INHALER 6.7 G (200 INHALATIONS) INH SCH ×6 (05:00→22:35)
[2019-07-28] MEDS: HumaLOG 300 UNITS/3 ML VIAL SC PRN ×3 (05:16→20:39)
[2019-07-28] MEDS: Ferrous Sulfate 325 MG TAB PO SCH (08:32)
[2019-07-28] MEDS: Bupropion 150 MG XL TAB PO SCH (08:33)
[2019-07-28] MEDS: Aspirin 81 mg Enteric Coated Tablet PO SCH (08:33)
[2019-07-28] MEDS: Enoxaparin Sodium 30 MG/0.3 ML SYRINGE SC SCH (08:33)
[2019-07-28] MEDS: predniSONE 20 MG TAB PO SCH (08:33)
[2019-07-28] MEDS: DULoxetine 60 MG CAP PO SCH ×2 (08:33→20:29)
[2019-07-28] MEDS: Folic Acid 1 MG TAB PO SCH (08:34)
[2019-07-28] MEDS: Gabapentin 400 MG CAP PO SCH ×2 (08:34→20:30)
[2019-07-28] MEDS: Hydroxychloroquine Sulfate 200 MG TAB PO SCH (08:34)
[2019-07-28] MEDS: Multivit, Therapeutic 1 TAB PO SCH (08:34)
[2019-07-28] MEDS: Insulin Glargine 10 UNITS in Pre-Filled Syringe 1 EACH SC SCH (08:34)
[2019-07-28] MEDS: Pioglitazone HCl 15 MG TAB PO SCH (08:35)
--- NOTE | 2019-07-28 13:41 | PDOC.HOSPP ---
- Subjective Encounter Date: 07/28/19 Encounter Time: 14:00 Subjective: f/u for COVID-19 PNA and hypoxic resp failure on high flow NC @ 30L/min. Feels stronger overall and less SOB. No fever. - Objective Vital Signs & Weight: Vital Signs (12 hours) Temp Pulse Resp BP BP Pulse Ox 07/28/19 12:02 98.8 F 100 20 124/67 95 07/28/19 08:37 97.9 F 93 20 131/60 95 07/28/19 04:00 97.2 F L 96 20 120/55 L 99 Weight Admit Weight 211 lb Weight 193 lb 1.6 oz I&O: 07/27/19 07/28/19 07/29/19 06:59 06:59 06:59 Intake Total 1790 1460 Output Total 1850 1650 Balance -60 -190 Result Diagrams: 07/25/19 04:33 07/25/19 04:33 Additional Labs: Accuchecks 07/28/19 07/28/19 07/27/19 10:53 05:12 20:25 POC Glucose 147 H 362 H 414 H 07/27/19 16:01 POC Glucose 301 H Microbiology 07/18/19 14:06 Throat - Pending Group A Streptococcus Screen (RAMYA) - Final 07/18/19 14:06 Nasal swab Influenza Types A,B Direct EIA - Final Laboratory Tests 07/18/19 07/18/19 07/18/19 13:47 13:47 13:47 D-Dimer 1.09 H Creatinine 1.96 H Ferritin Lactate Dehydrogenase Troponin I 0.042 H C-Reactive Protein 07/18/19 07/18/19 07/18/19 16:38 19:07 19:07 D-Dimer Creatinine Ferritin Lactate Dehydrogenase 326 H Troponin I 0.047 H 0.054 H C-Reactive Protein 07/18/19 07/18/19 19:07 19:07 D-Dimer Creatinine Ferritin 349.71 H Lactate Dehydrogenase Troponin I C-Reactive Protein 1.21 H EKG Reviewed by me: Yes (Tele - SR) Hospitalist ROS - Medication Medications: Active Medications Generic Name Dose Route Start Last Admin Trade Name Freq PRN Reason Stop Dose Admin Acetaminophen 1,000 mg 07/18/19 18:43 07/19/19 19:57 Tylenol PO 1,000 mg Q6H PRN Administration Mild Pain (1-3) Albuterol Sulfate 2 puff 07/18/19 22:30 07/28/19 11:00 Proventil Hfa INH 2 puff [id number] ELLEN Administration Amitriptyline HCl 25 mg 07/19/19 21:00 07/27/19 20:09 Elavil PO 25 mg HS ELLEN Administration Aspirin 81 mg 07/20/19 09:00 07/28/19 08:33 Ecotrin PO 81 mg DAILY ELLEN Administration Atorvastatin Calcium 10 mg 07/19/19 21:00 07/27/19 20:09 Lipitor PO 10 mg HS ELLEN Administration Bupropion HCl 300 mg 07/20/19 09:00 07/28/19 08:33 Wellbutrin Xl PO 300 mg DAILY ELLEN Administration Cyanocobalamin 1,000 mcg 07/25/19 09:00 07/25/19 09:40 Vitamin B-12 IM 1,000 mcg Q7DAYS ELLEN Administration Diltiazem HCl 180 mg 07/20/19 09:00 07/28/19 08:33 Cardizem Cd PO 180 mg DAILY ELLEN Administration Duloxetine HCl 60 mg 07/19/19 21:00 07/28/19 08:33 Cymbalta PO 60 mg BID ELLEN Administration Enoxaparin Sodium 30 mg 07/24/19 09:00 07/28/19 08:33 Lovenox SC 30 mg 0900 ELLEN Administration Ferrous Sulfate 325 mg 07/20/19 08:00 07/28/19 08:32 Feosol PO 325 mg QAM-WM ELLEN Administration Folic Acid 1 mg 07/20/19 09:00 07/28/19 08:34 Folvite PO 1 mg DAILY ELLEN Administration Gabapentin 1,200 mg 07/19/19 21:00 07/28/19 08:34 Neurontin PO 1,200 mg BID ELLEN Administration Hydroxychloroquine Sulfate 200 mg 07/20/19 09:00 07/28/19 08:34 Plaquenil PO 200 mg DAILY ELLEN Administration Insulin Glargine 10 units/ 0.1 mls @ 0 mls/hr 07/28/19 09:00 07/28/19 08:34 Miscellaneous Medication SC 0.1 mls QAM ELLEN Administration Insulin Human Lispro 0 units 07/24/19 04:45 07/28/19 05:16 Humalog SC 13 unit .AGGRESSIVE SLIDING PRN Administration AGGRESSIVE SLIDING SCALE Protocol Insulin Human Lispro 0 units 07/24/19 04:45 07/27/19 20:25 Humalog SC 5 unit .BEDTIME SLIDING SC PRN Administration BEDTIME SLIDING SCALE Protocol Multivitamins 1 tab 07/20/19 09:00 07/28/19 08:34 Theragran PO 1 tab DAILY ELLEN Administration Oxycodone/Acetaminophen 1 tab 07/21/19 10:09 07/24/19 21:40 Percocet 5/325 PO 1 tab Q4H PRN Administration Mild-Moderate Pain (1-5) Oxycodone/Acetaminophen 2 tab 07/21/19 10:09 07/28/19 13:35 Percocet 5/325 PO 2 tab Q4H PRN Administration Severe Pain (7-10) Pantoprazole Sodium 40 mg 07/19/19 21:00 07/28/19 08:35 Protonix PO 40 mg BID ELLEN Administration Pioglitazone HCl 30 mg 07/20/19 09:00 07/28/19 08:35 Actos PO 30 mg DAILY ELLEN Administration Prednisone 40 mg 07/27/19 08:00 07/28/19 08:33 Prednisone PO 40 mg QAM-WM ELLEN Administration Sodium Chloride 10 ml 07/21/19 21:00 07/28/19 08:35 Flush - Normal Saline IVF 10 ml Q12HR ELLEN Administration - Exam General Appearance: NAD, awake alert Eye: PERRL, anicteric sclera ENT: normocephalic atraumatic, no oropharyngeal lesions Neck: supple, symmetric, no JVD, no thyromegaly Heart: RRR, no gallops, no rubs, normal peripheral pulses Heart - other findings: S1, S2 Respiratory: no ronchi, normal chest expansion, tachypneic Respiratory - other findings: diminished in bases Gastrointestinal: soft, non-tender, non-distended, normal bowel sounds, no palpable masses Extremities: no cyanosis, no clubbing, no edema Skin: normal turgor, no lesions Neurological: cranial nerve grossly intact, no new deficit Musculoskeletal: normal tone, generalized weakness Psychiatric: normal affect, A&O x 3 Hosp A/P (1) Acute and chronic respiratory failure with hypoxia Code(s): J96.21 - ACUTE AND CHRONIC RESPIRATORY FAILURE WITH HYPOXIA Status: Acute Plan: Continue high-flow O2 and wean as clinically indicated (2) COVID-19 virus infection Code(s): U07.1 - COVID-19 Status: Acute Plan: Overall clinically improved but hypoxia remains, consider trial of Tocilizumab (3) Pneumonia due to 2019 novel coronavirus Code(s): U07.1 - COVID-19; J12.89 - OTHER VIRAL PNEUMONIA Status: Acute (4) NSTEMI (non-ST elevated myocardial infarction) Code(s): I21.4 - NON-ST ELEVATION (NSTEMI) MYOCARDIAL INFARCTION Status: Acute (5) CKD (chronic kidney disease), stage IV Code(s): N18.4 - CHRONIC KIDNEY DISEASE, STAGE 4 (SEVERE) Status: Chronic - Plan 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 Swing bed vs Rehab options
[2019-07-28] MEDS: Amitriptyline HCl 25 MG TAB PO SCH (20:30)
[2019-07-28] MEDS: Atorvastatin Calcium 10 MG TAB PO SCH (20:30)
[2019-07-29] MEDS: PROVENTIL INHALER 6.7 G (200 INHALATIONS) INH SCH ×6 (03:15→22:30)
[2019-07-29] MEDS: HumaLOG 300 UNITS/3 ML VIAL SC PRN ×4 (05:13→21:28)
[2019-07-29] MEDS: predniSONE 20 MG TAB PO SCH (09:17)
[2019-07-29] MEDS: Ferrous Sulfate 325 MG TAB PO SCH (09:17)
[2019-07-29] MEDS: Bupropion 150 MG XL TAB PO SCH (09:18)
[2019-07-29] MEDS: Gabapentin 400 MG CAP PO SCH ×2 (09:18→21:14)
[2019-07-29] MEDS: Aspirin 81 mg Enteric Coated Tablet PO SCH (09:18)
[2019-07-29] MEDS: DULoxetine 60 MG CAP PO SCH ×2 (09:18→21:14)
[2019-07-29] MEDS: Folic Acid 1 MG TAB PO SCH (09:18)
[2019-07-29] MEDS: Enoxaparin Sodium 30 MG/0.3 ML SYRINGE SC SCH (09:18)
[2019-07-29] MEDS: Multivit, Therapeutic 1 TAB PO SCH (09:19)
[2019-07-29] MEDS: Hydroxychloroquine Sulfate 200 MG TAB PO SCH (09:19)
[2019-07-29] MEDS: Pioglitazone HCl 15 MG TAB PO SCH (09:19)
[2019-07-29] MEDS: Insulin Glargine 10 UNITS in Pre-Filled Syringe 1 EACH SC SCH (09:19)
[2019-07-29] MEDS ORDERED: Iopamidol 370 76% 100 ML VIAL ONE (09:30)
--- NOTE | 2019-07-29 15:32 | PDOC.HOSPP ---
- Subjective Encounter Date: 07/29/19 Encounter Time: 15:20 Subjective: f/u for COVID-19 PNA with persistent hypoxia on high-flow O2 via NC @ 30L/min. States feeling stronger overall and worked with PT in room. - Objective Vital Signs & Weight: Vital Signs (12 hours) Temp Pulse Resp BP BP Pulse Ox 07/29/19 12:42 97.8 F 96 20 120/56 L 94 L 07/29/19 09:27 97.9 F 94 20 144/63 H 95 07/29/19 09:25 95 07/29/19 05:10 97.1 F L 90 16 133/63 93 L 07/29/19 04:50 96 Weight Admit Weight 211 lb Weight 193 lb 1.6 oz I&O: 07/28/19 07/29/19 07/30/19 06:59 06:59 06:59 Intake Total 1460 2485 Output Total 1650 2000 Balance -190 485 Result Diagrams: 07/25/19 04:33 07/25/19 04:33 Additional Labs: Accuchecks 07/29/19 07/29/19 07/28/19 12:46 05:11 20:38 POC Glucose 175 H 340 H 361 H 07/28/19 15:54 POC Glucose 494 H Microbiology 07/18/19 14:06 Throat - Pending Group A Streptococcus Screen (RAMYA) - Final 07/18/19 14:06 Nasal swab Influenza Types A,B Direct EIA - Final Laboratory Tests 07/18/19 07/18/19 07/18/19 13:47 13:47 13:47 D-Dimer 1.09 H Creatinine 1.96 H Ferritin Lactate Dehydrogenase Troponin I 0.042 H C-Reactive Protein 07/18/19 07/18/19 07/18/19 16:38 19:07 19:07 D-Dimer Creatinine Ferritin Lactate Dehydrogenase 326 H Troponin I 0.047 H 0.054 H C-Reactive Protein 07/18/19 07/18/19 19:07 19:07 D-Dimer Creatinine Ferritin 349.71 H Lactate Dehydrogenase Troponin I C-Reactive Protein 1.21 H EKG Reviewed by me: Yes (Tele - SR) Hospitalist ROS - Medication Medications: Active Medications Generic Name Dose Route Start Last Admin Trade Name Freq PRN Reason Stop Dose Admin Acetaminophen 1,000 mg 07/18/19 18:43 07/19/19 19:57 Tylenol PO 1,000 mg Q6H PRN Administration Mild Pain (1-3) Albuterol Sulfate 2 puff 07/18/19 22:30 07/29/19 14:32 Proventil Hfa INH 2 puff [id number] ELLEN Administration Amitriptyline HCl 25 mg 07/19/19 21:00 07/28/19 20:30 Elavil PO 25 mg HS ELLEN Administration Aspirin 81 mg 07/20/19 09:00 07/29/19 09:18 Ecotrin PO 81 mg DAILY ELLEN Administration Atorvastatin Calcium 10 mg 07/19/19 21:00 07/28/19 20:30 Lipitor PO 10 mg HS ELLEN Administration Bupropion HCl 300 mg 07/20/19 09:00 07/29/19 09:18 Wellbutrin Xl PO 300 mg DAILY ELLEN Administration Cyanocobalamin 1,000 mcg 07/25/19 09:00 07/25/19 09:40 Vitamin B-12 IM 1,000 mcg Q7DAYS ELLEN Administration Diltiazem HCl 180 mg 07/20/19 09:00 07/29/19 09:18 Cardizem Cd PO 180 mg DAILY ELLEN Administration Duloxetine HCl 60 mg 07/19/19 21:00 07/29/19 09:18 Cymbalta PO 60 mg BID ELLEN Administration Enoxaparin Sodium 30 mg 07/24/19 09:00 07/29/19 09:18 Lovenox SC 30 mg 0900 ELLEN Administration Ferrous Sulfate 325 mg 07/20/19 08:00 07/29/19 09:17 Feosol PO 325 mg QAM-WM ELLEN Administration Folic Acid 1 mg 07/20/19 09:00 07/29/19 09:18 Folvite PO 1 mg DAILY ELLEN Administration Gabapentin 1,200 mg 07/19/19 21:00 07/29/19 09:18 Neurontin PO 1,200 mg BID ELLEN Administration Hydroxychloroquine Sulfate 200 mg 07/20/19 09:00 07/29/19 09:19 Plaquenil PO 200 mg DAILY ELLEN Administration Insulin Glargine 10 units/ 0.1 mls @ 0 mls/hr 07/28/19 09:00 07/29/19 09:19 Miscellaneous Medication SC 0.1 mls QAM ELLEN Administration Insulin Human Lispro 0 units 07/24/19 04:45 07/29/19 12:49 Humalog SC 3 unit .AGGRESSIVE SLIDING PRN Administration AGGRESSIVE SLIDING SCALE Protocol Insulin Human Lispro 0 units 07/24/19 04:45 07/28/19 20:39 Humalog SC 5 unit .BEDTIME SLIDING SC PRN Administration BEDTIME SLIDING SCALE Protocol Multivitamins 1 tab 07/20/19 09:00 07/29/19 09:19 Theragran PO 1 tab DAILY ELLEN Administration Oxycodone/Acetaminophen 1 tab 07/21/19 10:09 07/24/19 21:40 Percocet 5/325 PO 1 tab Q4H PRN Administration Mild-Moderate Pain (1-5) Oxycodone/Acetaminophen 2 tab 07/21/19 10:09 07/28/19 13:35 Percocet 5/325 PO 2 tab Q4H PRN Administration Severe Pain (7-10) Pantoprazole Sodium 40 mg 07/19/19 21:00 07/29/19 09:19 Protonix PO 40 mg BID ELLEN Administration Pioglitazone HCl 30 mg 07/20/19 09:00 07/29/19 09:19 Actos PO 30 mg DAILY ELLEN Administration Prednisone 40 mg 07/27/19 08:00 07/29/19 09:17 Prednisone PO 40 mg QAM-WM ELLEN Administration Sodium Chloride 10 ml 07/21/19 21:00 07/29/19 09:19 Flush - Normal Saline IVF 10 ml Q12HR ELLEN Administration - Exam General Appearance: NAD, awake alert Eye: PERRL, anicteric sclera ENT: normocephalic atraumatic, no oropharyngeal lesions Neck: supple, symmetric, no JVD, no thyromegaly Heart: RRR, no gallops, no rubs, normal peripheral pulses Heart - other findings: S1, S2 Respiratory - other findings: diminished in bases bilat Gastrointestinal: soft, non-tender, non-distended, normal bowel sounds, no palpable masses Extremities: no cyanosis, no clubbing, no edema Skin: normal turgor, no lesions Neurological: cranial nerve grossly intact, no new deficit Musculoskeletal: normal tone, generalized weakness Psychiatric: normal affect, A&O x 3 Hosp A/P (1) Acute and chronic respiratory failure with hypoxia Code(s): J96.21 - ACUTE AND CHRONIC RESPIRATORY FAILURE WITH HYPOXIA Status: Acute Plan: Persistent hypoxia remaining on high-flow O2, wean slowly and as clinically indicated, check CTA chest to r/o PE (2) COVID-19 virus infection Code(s): U07.1 - COVID-19 Status: Acute (3) Pneumonia due to 2019 novel coronavirus Code(s): U07.1 - COVID-19; J12.89 - OTHER VIRAL PNEUMONIA Status: Acute (4) NSTEMI (non-ST elevated myocardial infarction) Code(s): I21.4 - NON-ST ELEVATION (NSTEMI) MYOCARDIAL INFARCTION Status: Acute (5) CKD (chronic kidney disease), stage IV Code(s): N18.4 - CHRONIC KIDNEY DISEASE, STAGE 4 (SEVERE) Status: Chronic - Plan 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 Swing bed vs Rehab options
--- NOTE | 2019-07-29 18:35 | CT ---
CTA CHEST WITH CONTRAST: Technique: Axial images were obtained following pulmonary angio protocol with multiplanar reconstruct ion and 3D post processing. Indications: Hypoxia. Covid-19 positive. Assess for pulmonary embolus. FINDINGS: Pulmonary arteries exhibit adequate enhancement. No evidence of pulmonary embolus identified. Thoracic aorta unremarkable. Review of lung soto reveal small left effusion. Confluent consolidation and atelectasis in the left lung base posteriorly. Focal area of pleural based atelectasis or infiltrate peripheral left upper l obe with some surrounding ground glass opacity consistent with separate area of pneumonitis. There ar e other hazy ground glass opacities in the left upper lobe. Also, well defined areas of ground glass opacity in the right upper lobe without focal confluent infi ltrate or consolidation. There is focal confluent consolidation atelectasis in the right lung base posteriorly. Nonspecific mediastinal and hilar adenopathy. Small paracardial effusion. IMPRESSION: 1. No evidence of pulmonary embolus. 2. Bilateral infiltrates as described above. 3. Small pericardial effusion. 4. Nonspecific mediastinal and hilar adenopathy. POS: AGW
[2019-07-29] MEDS: Amitriptyline HCl 25 MG TAB PO SCH (21:14)
[2019-07-29] MEDS: Atorvastatin Calcium 10 MG TAB PO SCH (21:14)
[2019-07-30] MEDS: PROVENTIL INHALER 6.7 G (200 INHALATIONS) INH SCH ×6 (02:30→22:30)
[2019-07-30] MEDS: HumaLOG 300 UNITS/3 ML VIAL SC PRN ×3 (06:11→17:10)
[2019-07-30] MEDS: Enoxaparin Sodium 30 MG/0.3 ML SYRINGE SC SCH (08:37)
[2019-07-30] MEDS: DULoxetine 60 MG CAP PO SCH ×2 (08:37→20:43)
[2019-07-30] MEDS: Pioglitazone HCl 15 MG TAB PO SCH (08:37)
[2019-07-30] MEDS: Gabapentin 400 MG CAP PO SCH ×2 (08:38→20:41)
[2019-07-30] MEDS: predniSONE 20 MG TAB PO SCH (08:38)
[2019-07-30] MEDS: Bupropion 150 MG XL TAB PO SCH (08:38)
[2019-07-30] MEDS: Aspirin 81 mg Enteric Coated Tablet PO SCH (08:38)
[2019-07-30] MEDS: Folic Acid 1 MG TAB PO SCH (08:39)
[2019-07-30] MEDS: Hydroxychloroquine Sulfate 200 MG TAB PO SCH (08:39)
[2019-07-30] MEDS: Ferrous Sulfate 325 MG TAB PO SCH (08:39)
[2019-07-30] MEDS: Multivit, Therapeutic 1 TAB PO SCH (08:39)
[2019-07-30] MEDS: Insulin Glargine 10 UNITS in Pre-Filled Syringe 1 EACH SC SCH (08:39)
--- NOTE | 2019-07-30 14:31 | PDOC.HOSPP ---
- Subjective Encounter Date: 07/30/19 Encounter Time: 14:30 Subjective: f/u for COVID PNA on high-flow NC @ 30L/min. Feeling ok overall. CTA performed and r/o PE. - Objective Vital Signs & Weight: Vital Signs (12 hours) Temp Pulse Resp BP Pulse Ox 07/30/19 12:50 98.9 F 101 H 18 143/65 H 98 07/30/19 08:47 96.8 F L 94 16 146/64 H 95 07/30/19 04:00 96.7 F L 86 14 144/73 H 93 L Weight Admit Weight 211 lb Weight 193 lb 1.6 oz I&O: 07/29/19 07/30/19 07/31/19 06:59 06:59 06:59 Intake Total 2485 2450 Output Total 1999 136 Balance 485 1087 Result Diagrams: 07/25/19 04:33 07/25/19 04:33 Additional Labs: Accuchecks 07/30/19 07/30/19 07/29/19 12:53 06:11 21:25 POC Glucose 323 H 231 H 206 H 07/29/19 17:39 POC Glucose 424 H Microbiology 07/18/19 14:06 Throat - Pending Group A Streptococcus Screen (RAMYA) - Final 07/18/19 14:06 Nasal swab Influenza Types A,B Direct EIA - Final Laboratory Tests 07/18/19 07/18/19 07/18/19 13:47 13:47 13:47 D-Dimer 1.09 H Creatinine 1.96 H Ferritin Lactate Dehydrogenase Troponin I 0.042 H C-Reactive Protein 07/18/19 07/18/19 07/18/19 16:38 19:07 19:07 D-Dimer Creatinine Ferritin Lactate Dehydrogenase 326 H Troponin I 0.047 H 0.054 H C-Reactive Protein 07/18/19 07/18/19 19:07 19:07 D-Dimer Creatinine Ferritin 349.71 H Lactate Dehydrogenase Troponin I C-Reactive Protein 1.21 H Radiology Reviewed by me: Yes (CTA chest - neg for PE, bilat infiltrates) EKG Reviewed by me: Yes (Tele - SR) Hospitalist ROS - Medication Medications: Active Medications Generic Name Dose Route Start Last Admin Trade Name Freq PRN Reason Stop Dose Admin Acetaminophen 1,000 mg 07/18/19 18:43 07/19/19 19:57 Tylenol PO 1,000 mg Q6H PRN Administration Mild Pain (1-3) Albuterol Sulfate 2 puff 07/18/19 22:30 07/30/19 12:30 Proventil Hfa INH 2 puff [id number] ELLEN Administration Amitriptyline HCl 25 mg 07/19/19 21:00 07/29/19 21:14 Elavil PO 25 mg HS ELELN Administration Aspirin 81 mg 07/20/19 09:00 07/30/19 08:38 Ecotrin PO 81 mg DAILY ELLEN Administration Atorvastatin Calcium 10 mg 07/19/19 21:00 07/29/19 21:14 Lipitor PO 10 mg HS ELLEN Administration Bupropion HCl 300 mg 07/20/19 09:00 07/30/19 08:38 Wellbutrin Xl PO 300 mg DAILY ELLEN Administration Cyanocobalamin 1,000 mcg 07/25/19 09:00 07/25/19 09:40 Vitamin B-12 IM 1,000 mcg Q7DAYS ELLEN Administration Diltiazem HCl 180 mg 07/20/19 09:00 07/30/19 08:38 Cardizem Cd PO 180 mg DAILY ELLEN Administration Duloxetine HCl 60 mg 07/19/19 21:00 07/30/19 08:37 Cymbalta PO 60 mg BID ELLEN Administration Enoxaparin Sodium 30 mg 07/24/19 09:00 07/30/19 08:37 Lovenox SC 30 mg 0900 ELLEN Administration Ferrous Sulfate 325 mg 07/20/19 08:00 07/30/19 08:39 Feosol PO 325 mg QAM-WM ELLEN Administration Folic Acid 1 mg 07/20/19 09:00 07/30/19 08:39 Folvite PO 1 mg DAILY ELLEN Administration Gabapentin 1,200 mg 07/19/19 21:00 07/30/19 08:38 Neurontin PO 1,200 mg BID ELLEN Administration Insulin Glargine 10 units/ 0.1 mls @ 0 mls/hr 07/28/19 09:00 07/30/19 08:39 Miscellaneous Medication SC 0.1 mls QAM ELLEN Administration Insulin Human Lispro 0 units 07/24/19 04:45 07/30/19 13:11 Humalog SC 11 unit .AGGRESSIVE SLIDING PRN Administration AGGRESSIVE SLIDING SCALE Protocol Insulin Human Lispro 0 units 07/24/19 04:45 07/29/19 21:28 Humalog SC 2 unit .BEDTIME SLIDING SC PRN Administration BEDTIME SLIDING SCALE Protocol Multivitamins 1 tab 07/20/19 09:00 07/30/19 08:39 Theragran PO 1 tab DAILY ELLEN Administration Oxycodone/Acetaminophen 1 tab 07/21/19 10:09 07/24/19 21:40 Percocet 5/325 PO 1 tab Q4H PRN Administration Mild-Moderate Pain (1-5) Oxycodone/Acetaminophen 2 tab 07/21/19 10:09 07/28/19 13:35 Percocet 5/325 PO 2 tab Q4H PRN Administration Severe Pain (7-10) Pantoprazole Sodium 40 mg 07/19/19 21:00 07/30/19 08:39 Protonix PO 40 mg BID ELLEN Administration Pioglitazone HCl 30 mg 07/20/19 09:00 07/30/19 08:37 Actos PO 30 mg DAILY ELLEN Administration Prednisone 40 mg 07/27/19 08:00 07/30/19 08:38 Prednisone PO 40 mg QAM-WM ELLEN Administration Sodium Chloride 10 ml 07/21/19 21:00 07/30/19 08:40 Flush - Normal Saline IVF 10 ml Q12HR ELLEN Administration - Exam General Appearance: NAD, awake alert Eye: PERRL, anicteric sclera ENT: normocephalic atraumatic, no oropharyngeal lesions Neck: supple, symmetric, no JVD, no thyromegaly, no lymphadenopathy Heart: RRR, no murmur, no gallops, no rubs, normal peripheral pulses Heart - other findings: S1, S2 Respiratory: tachypneic Respiratory - other findings: diminished in bases, few scattered rhonchi Gastrointestinal: soft, non-tender, non-distended, normal bowel sounds, no palpable masses Extremities: no cyanosis, no clubbing, no edema Skin: normal turgor, no lesions Neurological: cranial nerve grossly intact, no new deficit Musculoskeletal: normal tone, generalized weakness Psychiatric: normal affect, A&O x 3 Hosp A/P (1) Acute and chronic respiratory failure with hypoxia Code(s): J96.21 - ACUTE AND CHRONIC RESPIRATORY FAILURE WITH HYPOXIA Status: Acute Plan: continues to require high-flow NC, wean as clinically able, supportive mgmt (2) COVID-19 virus infection Code(s): U07.1 - COVID-19 Status: Acute Plan: Resp isolation per protocol (3) Pneumonia due to 2019 novel coronavirus Code(s): U07.1 - COVID-19; J12.89 - OTHER VIRAL PNEUMONIA Status: Acute (4) NSTEMI (non-ST elevated myocardial infarction) Code(s): I21.4 - NON-ST ELEVATION (NSTEMI) MYOCARDIAL INFARCTION Status: Acute (5) CKD (chronic kidney disease), stage IV Code(s): N18.4 - CHRONIC KIDNEY DISEASE, STAGE 4 (SEVERE) Status: Chronic - Plan 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 Swing bed vs Rehab options
[2019-07-30] MEDS: oxyCODONE/Acetaminophen 5 mg/325 mg Tablet PO PRN (16:33)
[2019-07-30] MEDS: Amitriptyline HCl 25 MG TAB PO SCH (20:41)
[2019-07-30] MEDS: Atorvastatin Calcium 10 MG TAB PO SCH (20:42)
[2019-07-31] MEDS: PROVENTIL INHALER 6.7 G (200 INHALATIONS) INH SCH ×5 (02:30→21:46)
[2019-07-31] MEDS: HumaLOG 300 UNITS/3 ML VIAL SC PRN ×4 (04:32→20:54)
[2019-07-31] MEDS: Enoxaparin Sodium 30 MG/0.3 ML SYRINGE SC SCH (08:12)
[2019-07-31] MEDS: Insulin Glargine 10 UNITS in Pre-Filled Syringe 1 EACH SC SCH (08:13)
[2019-07-31] MEDS: Gabapentin 400 MG CAP PO SCH ×2 (08:14→20:49)
[2019-07-31] MEDS: Bupropion 150 MG XL TAB PO SCH (08:14)
[2019-07-31] MEDS: Aspirin 81 mg Enteric Coated Tablet PO SCH (08:14)
[2019-07-31] MEDS: Pioglitazone HCl 15 MG TAB PO SCH (08:14)
[2019-07-31] MEDS: Ferrous Sulfate 325 MG TAB PO SCH (08:14)
[2019-07-31] MEDS: Multivit, Therapeutic 1 TAB PO SCH (08:14)
[2019-07-31] MEDS: predniSONE 20 MG TAB PO SCH (08:15)
[2019-07-31] MEDS: Folic Acid 1 MG TAB PO SCH (08:15)
[2019-07-31] MEDS: Hydroxychloroquine Sulfate 200 MG TAB PO SCH (08:15)
[2019-07-31] MEDS: DULoxetine 60 MG CAP PO SCH ×2 (08:21→20:49)
--- NOTE | 2019-07-31 13:08 | PDOC.HOSPP ---
- Subjective Encounter Date: 07/31/19 Encounter Time: 13:05 Subjective: f/u for COVI-19 PNA and hypoxia previously managed with high-flow NC now on 4L/ min NC. States feeling better and stronger. - Objective Vital Signs & Weight: Vital Signs (12 hours) Temp Pulse Resp BP BP Pulse Ox 07/31/19 08:39 97.5 F L 88 20 123/57 L 95 07/31/19 04:00 97.3 F L 91 16 139/67 97 Weight Admit Weight 211 lb Weight 193 lb 1.6 oz I&O: 07/30/19 07/31/19 08/01/19 06:59 06:59 06:59 Intake Total 2450 3280 Output Total 1363 600 Balance 1087 2680 Result Diagrams: 07/25/19 04:33 07/25/19 04:33 Additional Labs: Accuchecks 07/31/19 07/30/19 07/30/19 12:37 21:02 16:44 POC Glucose 302 H 262 H 335 H 07/30/19 12:53 POC Glucose 323 H Microbiology 07/18/19 14:06 Throat - Pending Group A Streptococcus Screen (RAMYA) - Final 07/18/19 14:06 Nasal swab Influenza Types A,B Direct EIA - Final Laboratory Tests 07/18/19 07/18/19 07/18/19 13:47 13:47 13:47 D-Dimer 1.09 H Creatinine 1.96 H Ferritin Lactate Dehydrogenase Troponin I 0.042 H C-Reactive Protein 07/18/19 07/18/19 07/18/19 16:38 19:07 19:07 D-Dimer Creatinine Ferritin Lactate Dehydrogenase 326 H Troponin I 0.047 H 0.054 H C-Reactive Protein 07/18/19 07/18/19 19:07 19:07 D-Dimer Creatinine Ferritin 349.71 H Lactate Dehydrogenase Troponin I C-Reactive Protein 1.21 H EKG Reviewed by me: Yes (Tele - SR) Hospitalist ROS - Medication Medications: Active Medications Generic Name Dose Route Start Last Admin Trade Name Freq PRN Reason Stop Dose Admin Acetaminophen 1,000 mg 07/18/19 18:43 07/19/19 19:57 Tylenol PO 1,000 mg Q6H PRN Administration Mild Pain (1-3) Albuterol Sulfate 2 puff 07/18/19 22:30 07/31/19 07:00 Proventil Hfa INH 2 puff [id number] ELLEN Administration Amitriptyline HCl 25 mg 07/19/19 21:00 07/30/19 20:41 Elavil PO 25 mg HS ELLEN Administration Aspirin 81 mg 07/20/19 09:00 07/31/19 08:14 Ecotrin PO 81 mg DAILY ELLEN Administration Atorvastatin Calcium 10 mg 07/19/19 21:00 07/30/19 20:42 Lipitor PO 10 mg HS ELLEN Administration Bupropion HCl 300 mg 07/20/19 09:00 07/31/19 08:14 Wellbutrin Xl PO 300 mg DAILY ELLEN Administration Cyanocobalamin 1,000 mcg 07/25/19 09:00 07/25/19 09:40 Vitamin B-12 IM 1,000 mcg Q7DAYS ELLEN Administration Diltiazem HCl 180 mg 07/20/19 09:00 07/31/19 08:15 Cardizem Cd PO 180 mg DAILY ELLEN Administration Duloxetine HCl 60 mg 07/19/19 21:00 07/31/19 08:21 Cymbalta PO 60 mg BID ELLEN Administration Enoxaparin Sodium 30 mg 07/24/19 09:00 07/31/19 08:12 Lovenox SC 30 mg 0900 ELLEN Administration Ferrous Sulfate 325 mg 07/20/19 08:00 07/31/19 08:14 Feosol PO 325 mg QAM-WM ELLEN Administration Folic Acid 1 mg 07/20/19 09:00 07/31/19 08:15 Folvite PO 1 mg DAILY ELLEN Administration Gabapentin 1,200 mg 07/19/19 21:00 07/31/19 08:14 Neurontin PO 1,200 mg BID ELLEN Administration Hydroxychloroquine Sulfate 200 mg 07/31/19 09:00 07/31/19 08:15 Plaquenil PO 200 mg DAILY ELLEN Administration Insulin Glargine 10 units/ 0.1 mls @ 0 mls/hr 07/28/19 09:00 07/31/19 08:13 Miscellaneous Medication SC 0.1 mls QAM ELLEN Administration Insulin Human Lispro 0 units 07/24/19 04:45 07/31/19 12:41 Humalog SC 11 unit .AGGRESSIVE SLIDING PRN Administration AGGRESSIVE SLIDING SCALE Protocol Insulin Human Lispro 0 units 07/24/19 04:45 07/29/19 21:28 Humalog SC 2 unit .BEDTIME SLIDING SC PRN Administration BEDTIME SLIDING SCALE Protocol Multivitamins 1 tab 07/20/19 09:00 07/31/19 08:14 Theragran PO 1 tab DAILY ELLEN Administration Pantoprazole Sodium 40 mg 07/19/19 21:00 07/31/19 08:14 Protonix PO 40 mg BID ELLEN Administration Pioglitazone HCl 30 mg 07/20/19 09:00 07/31/19 08:14 Actos PO 30 mg DAILY ELLEN Administration Prednisone 40 mg 07/27/19 08:00 07/31/19 08:15 Prednisone PO 40 mg QAM-WM ELLEN Administration Sodium Chloride 10 ml 07/21/19 21:00 07/31/19 08:22 Flush - Normal Saline IVF 10 ml Q12HR ELLEN Administration - Exam General Appearance: NAD, awake alert Eye: PERRL, anicteric sclera ENT: normocephalic atraumatic, no oropharyngeal lesions Neck: supple, symmetric, no JVD, no thyromegaly Heart: RRR, no murmur, no gallops, no rubs, normal peripheral pulses Heart - other findings: S1, S2 Respiratory: CTAB, no rales, no ronchi, normal chest expansion, no tachypnea Gastrointestinal: soft, non-tender, non-distended, normal bowel sounds, no palpable masses Extremities: no cyanosis, no clubbing, no edema Skin: normal turgor, no lesions Neurological: cranial nerve grossly intact, no new deficit Musculoskeletal: normal tone Psychiatric: normal affect, A&O x 3 Hosp A/P (1) Acute and chronic respiratory failure with hypoxia Code(s): J96.21 - ACUTE AND CHRONIC RESPIRATORY FAILURE WITH HYPOXIA Status: Acute Plan: Weaned to 4L/min NC currently (2) COVID-19 virus infection Code(s): U07.1 - COVID-19 Status: Acute Plan: Recheck COVID PCR today (3) Pneumonia due to 2019 novel coronavirus Code(s): U07.1 - COVID-19; J12.89 - OTHER VIRAL PNEUMONIA Status: Acute (4) NSTEMI (non-ST elevated myocardial infarction) Code(s): I21.4 - NON-ST ELEVATION (NSTEMI) MYOCARDIAL INFARCTION Status: Acute (5) CKD (chronic kidney disease), stage IV Code(s): N18.4 - CHRONIC KIDNEY DISEASE, STAGE 4 (SEVERE) Status: Chronic - Plan 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 Swing bed vs Rehab options
[2019-07-31] MEDS: Amitriptyline HCl 25 MG TAB PO SCH (20:50)
[2019-07-31] MEDS: Atorvastatin Calcium 10 MG TAB PO SCH (20:50)
[2019-08-01] MEDS: PROVENTIL INHALER 6.7 G (200 INHALATIONS) INH SCH ×5 (01:08→14:03)
[2019-08-01] MEDS: HumaLOG 300 UNITS/3 ML VIAL SC PRN ×2 (05:05→12:41)
[2019-08-01] MEDS: Insulin Glargine 10 UNITS in Pre-Filled Syringe 1 EACH SC SCH (09:27)
[2019-08-01] MEDS: Enoxaparin Sodium 30 MG/0.3 ML SYRINGE SC SCH (09:28)
[2019-08-01] MEDS: Pioglitazone HCl 15 MG TAB PO SCH (09:29)
[2019-08-01] MEDS: Multivit, Therapeutic 1 TAB PO SCH (09:29)
[2019-08-01] MEDS: predniSONE 20 MG TAB PO SCH (09:29)
[2019-08-01] MEDS: Bupropion 150 MG XL TAB PO SCH (09:29)
[2019-08-01] MEDS: Aspirin 81 mg Enteric Coated Tablet PO SCH (09:29)
[2019-08-01] MEDS: Ferrous Sulfate 325 MG TAB PO SCH (09:29)
[2019-08-01] MEDS: Folic Acid 1 MG TAB PO SCH (09:30)
[2019-08-01] MEDS: Gabapentin 400 MG CAP PO SCH (09:30)
[2019-08-01] MEDS: Cyanocobalamin 1000 MCG/ML VIAL IM SCH (09:30)
[2019-08-01] MEDS: Hydroxychloroquine Sulfate 200 MG TAB PO SCH (09:31)
[2019-08-01] MEDS: DULoxetine 60 MG CAP PO SCH (09:37)
[2019-08-01 12:03] LABS: SARS-CoV-2 MS2 Positive; SARS-CoV-2 N Gene Negative; SARS-CoV-2 S Gene Negative; SARS-CoV-2 orf1ab Negative
[2019-08-01 12:53] VITALS: BP 132/70; TEMP 98.4
--- NOTE | 2019-08-01 13:05 | DIS ---
DATE OF ADMISSION: 07/18/2019 DATE OF DISCHARGE: 08/01/2019 DISCHARGE DIAGNOSES: 1. Acute on chronic hypoxic respiratory failure secondary to COVID-19 viral pneumonia. 2. COVID-19 viral pneumonia, improved. 3. Non-ST elevation myocardial infarction type 2 secondary or secondary to demand ischemia. 4. Chronic kidney disease, stage 4. CONSULTATIONS: None. PERTINENT LABORATORY AND X-RAY FINDINGS: Creatinine ranged between 1.60 to 1.96, estimated GFR ranged between 25 to 32, magnesium 2.2. Ferritin 350. Lactate dehydrogenase 326. CRP 1.21. CBC showed a hemoglobin ranging between 9.2 to 11.1. D-dimer 1.09. COVID-19 PCR on 07/18/2019, positive. Repeat COVID-19 PCR on 07/31/2019, negative. Influenza A and B antigen dated 07/18/2019, negative. Group A Streptococcus culture dated 07/18/2019, negative. Portable chest x-ray dated 07/18/2019, showed consolidation of the left lower lobe and lingula of the left upper lobe. Diffuse mild interstitial infiltrates. CT angiogram of the chest dated 07/29/2019 showed no evidence for pulmonary embolus. Bilateral infiltrates noted. HOSPITAL COURSE: The patient was admitted after presenting with increased respiratory distress and hypoxia in the context of chronic hypoxic respiratory failure. The patient underwent evaluation with COVID-19 PCR positive. The patient was placed on high-flow nasal cannula in an attempt to increase oxygen supplementation and decreased respiratory distress. The patient received bronchodilator therapy with albuterol and initially placed on IV cefepime and Zithromax. The patient was treated for approximately 5 days with this regimen with no improvement in oxygenation status. The patient continued on high-flow nasal cannula throughout the remainder of her hospital course for approximately 2 weeks, however, was able to transition to oxygen by nasal cannula at 4 L/minute by the time of discharge. The patient had a protracted hospital course due to the COVID-19 viral infection, however, clinically improved without evidence of fever or decompensation. Initially, the patient was being evaluated for possible skilled care. However, due to rapid improvement, the patient was deemed appropriate for discharge home with Home Health Services including physical therapy. I have examined the patient at the time of discharge and discussed followup instructions. The patient verbalized understanding and in agreement and ready for discharge on 08/01/2019. DISCHARGE MEDICATIONS: 1. Prednisone 20 mg, take 2 tablets p.o. daily x3 days, followed by 1 tablet p.o. daily x3 days, followed by half a tablet p.o. daily x3 days. 2. Amitriptyline 25 mg p.o. at bedtime. 3. Enteric-coated aspirin 81 mg p.o. daily. 4. Wellbutrin XL 300 mg p.o. q.a.m. 5. Vitamin B12 of 1000 mcg intramuscularly q.7 days. 6. Cartia XT 180 mg p.o. daily. 7. Cymbalta 60 mg p.o. b.i.d. 8. Feosol 325 mg p.o. daily. 9. Breo Ellipta 100 mcg/25 mcg two inhalations daily. 10. Folic acid 1 mg p.o. daily. 11. Gabapentin 1200 mg p.o. b.i.d. 12. Plaquenil 200 mg p.o. daily. 13. Multivitamin one tab p.o. daily. 14. Protonix 40 mg p.o. b.i.d. 15. Actos 30 mg p.o. daily. 16. Pravachol 40 mg p.o. at bedtime. 17. Proventil HFA two puffs inhaled q.4 hours p.r.n. FOLLOWUP: The patient to follow up with Dr. Raudel Cherry within 7 days of discharge. CONDITION ON DISCHARGE: Stable. ACTIVITY: Ad-jayleen. Rolling walker with standby assistance. DIET: ADA and heart healthy. SPECIAL INSTRUCTIONS: The patient receive home health services including physical therapy at discharge. CODE STATUS: Full. DISPOSITION: Home on 08/01/2019. TIME SPENT: Total time preparing and coordinating discharge, 38 minutes. Job ID: [id number]
== END 2019-08-01 16:06 | disposition home health service (06) | DRG 177 ==
LOC: ERS 13:20 → 2SW 15:45
PROVIDERS: ADMIT Family Medicine; ATTEND Family Medicine
PROC: 8E0ZXY6 Isolation (ICD-10-PCS; principal; 2019-07-23)
DX: U07.1 COVID-19 (principal); J12.89 Other viral pneumonia; J96.21 Acute and chronic respiratory failure with hypoxia; I21.A1 Myocardial infarction type 2; N18.4 Chronic kidney disease, stage 4 (severe); J44.0 Chronic obstructive pulmonary disease with (acute) lower respiratory infection; M06.9 Rheumatoid arthritis, unspecified; F32.9 Major depressive disorder, single episode, unspecified; I12.9 Hypertensive chronic kidney disease with stage 1 through stage 4 chronic kidney disease, or unspecified chronic kidney disease; M19.90 Unspecified osteoarthritis, unspecified site; G62.9 Polyneuropathy, unspecified; Z96.643 Presence of artificial hip joint, bilateral; D63.1 Anemia in chronic kidney disease; Z99.81 Dependence on supplemental oxygen; Z90.49 Acquired absence of other specified parts of digestive tract; Z98.84 Bariatric surgery status; Z79.899 Other long term (current) drug therapy; Z87.891 Personal history of nicotine dependence
CPT/HCPCS: 36415; 36416; 71045; 71275; 80048; 80053; 82550; 82553; 82728; 82805; 83615; 83735; 84484; 85007; 85014; 85018; 85025; 85027; 85049; 85379; 86140; 87081; 87430; 87635; 87804; 93005; 94664; 96365; 96366; 96367; J0456; J0692; J1650; J1815; J2920; J3370; J3420; J3490; J7050; J7512; J7626; Q9967; U0002